=== PATIENT | male | born 1965 | race African-American/Black ===

== ENCOUNTER 2018-01-18 10:39 | Inpatient (IN) | payer OTHER ==
[~2018-01-18] VITALS: Ht 175.3 cm; Wt 104.3 kg
[2018-01-18] VITALS (7 sets, daily range): BP systolic 139–208; BP diastolic 74–108
--- NOTE | ~2018-01-18 | EKG ---
[address] [address] ELECTROCARDIOGRAM REPORT Name: DAMIÁN MERRILL Room #: 210-P ADM IN M.R.#: [id number] Admission: 01/18/18 Attend Phys: Kevin Villalta MD Discharge: Date of : 67 Report #: [id number] THIS REPORT FOR: //name// [facility] ED Test Date: 2018-01-18 Test Time: 11:01:21 Pat Name: DAMIÁN MERRILL Department: Room: 210 Gender: M Ict Development Manager: AVRIL : 1965 Requested By: Jef Segura Order Number: [id number] MD: Hector Carl Measurements Intervals [place] Rate: 86 P: 33 WI: 155 QRS: 67 QRSD: 88 T: 64 QT: 411 QTc: 492 Interpretive Statements Sinus rhythm Probable left atrial enlargement No previous ECG available for comparison Electronically Signed On 01-18-2018 17:17:30 CDT by Hector Carl [email or web address] <ELECTRONICALLY SIGNED> By: Hector Carl MD 01/18/18 1717 1101 1101 MD DEBBIE Cross
--- NOTE | ~2018-01-18 | HC ---
[facility] [place] [address] CONSULTATION Name: DAMIÁN MERRILL Room #: 210-P ADM IN M.R.#: [id number] Admission: 01/18/18 Attend Phys: Kevin Villalta MD Discharge: Date of : 67 Report #: [id number] THIS REPORT FOR: //name// CC: Kevin Villalta Pulmonary Consultation REFERRING PHYSICIAN: Kevin Villalta MD REASON FOR REFERRAL: Pneumonia. HISTORY OF PRESENT ILLNESS: The patient is a 52-year-old transgender female who presents to the emergency room with dyspnea. A pulmonary consultation was requested. The patient is a poor historian. Most of the history is obtained from the records. According to records, he has been symptomatic for the past week with progressive dyspnea, particularly at night. The patient had a prior history of respiratory failure requiring tracheostomy, which was removed. He is quadriplegic following a stroke with partial movement of his left arm and left foot. He currently resides at [facility]. Saturation there on the night of admission was said to be 82%. He was given the bronchodilator treatments. 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 ALLERGIES: None to medications. MEDICATIONS: [facility] include Tenormin, TriCor, hydralazine, Mevacor, Carafate, Norvasc, Aldactone, Mucinex, Phenergan, trazodone, Pyridium, Bactrim. FAMILY HISTORY: Noncontributory. SOCIAL HISTORY: Denies any tobacco or alcohol use. He currently resides at the [facility]. REVIEW OF SYSTEMS: Deferred, as the patient is not a good historian at this time. PHYSICAL EXAMINATION: GENERAL: He is awake, alert, in no distress. [facility] [address] [place] [address] CONSULTATION Name: DAMIÁN MERRILL Room #: [address] [place] [address] IN ..#: [id number] Admission: 01/18/18 Attend Phys: Kevin Villalta MD Discharge: Date of : 67 Report #: [id number] VITAL SIGNS: Temperature is 98 degrees Fahrenheit, pulse is 90, respiratory rate is 20, blood pressure 140/80 mmHg, and saturation is 99%. HEENT: Normocephalic, atraumatic. NECK: Supple, without lymphadenopathy or thyromegaly. CHEST: Breath sounds are fair anteriorly. Few scattered crackles in the bases. No wheezes. CARDIOVASCULAR: Normal S1, S2. No murmurs or gallop. There is no JVD. There is no carotid bruit. Pulses are 2+/4+ bilaterally. ABDOMEN: Soft, no masses felt. Nontender. GENITOURINARY AND RECTAL: Deferred. EXTREMITIES: There is no edema, cyanosis or clubbing. IMAGING DATA: CT chest angiogram shows no evidence of pulmonary embolus, left lower lobe infiltrate/atelectasis noted. Dense calcification involving the descending aorta is noted, enlargement of ascending aorta measuring 5 cm down to the diaphragm. LABORATORY DATA: Influenza A and B swab was negative. Troponin is normal. Venous ultrasound of the upper extremity was negative for DVT. Echocardiogram showed ejection fraction of 60%-65%, aortic valve not well visualized. Moderate aortic regurgitation, mitral valve is unremarkable. Pulmonary pressure measuring 75-80 mmHg. Aortic root measures upper limits of normal. Prominent descending aorta is noted. Electrolytes are normal, creatinine is normal. Liver enzymes are moderately elevated. WBC 7200, hemoglobin 11.6, hemoglobin 15.9. No evidence of bandemia. Platelets are normal. Albumin 3.3. Arterial blood gas revealed pH 7.34, pCO2 of 63, pO2 84 on 4 L of O2. IMPRESSION: 1. Left lower lobe infiltrates in this 52-year-old transgender female with history of HIV. This likely represents aspiration pneumonia. Nosocomial infection should also be covered. With history of HIV, opportunistic infection cannot be ruled out. Recommend infectious disease consultation. 2. Acute on chronic hypoxic hypercapnic respiratory failure due to above along with probable hypoventilation syndrome given history of cerebrovascular accident. 3. Cerebrovascular accident with incomplete quadriplegia, with some partial movements involving his left upper and lower extremities. 4. Human immunodeficiency virus. 5. Elevated D-dimer, likely due to infectious process. 6. History of hypertension. 7. Gastroesophageal reflux disease. 8. Hyponatremia. 9. Hypomagnesemia. RECOMMENDATIONS: We will defer antibiotics to infectious disease. Wean O2 for saturation 90%. Chest physiotherapy is recommended. DVT and GI prophylaxis [address] [address] CONSULTATION Name: DAMIÁN MERRILL Room #: 210-P [facility] IN M.R.#: [id number] Admission: 01/18/18 Attend Phys: Kevin Villalta MD Discharge: Date of : 67 Report #: [id number] will be indicated. Thank you for this consultation. <ELECTRONICALLY SIGNED> By: James Bradley MD 01/20/18 1715 1642 0051 James Bradley MD /nt
--- NOTE | ~2018-01-18 | 2DMMODE ---
[facility] [address] [place] [address] 2 D/M-MODE ECHOCARDIOGRAM Name: DAMIÁN MERRILL Room #: 210-P ADM IN M.R.#: [id number] Admission: 01/18/18 Attend Phys: Kevin Villalta MD Discharge: Date of : 67 Date of Service: 01/18/18 1531 Report #: [id number] THIS REPORT FOR: //name// APPROVED REPORT Study performed: 01/18/2018 13:42:05 EXAM: Comprehensive 2D, Doppler, and color-flow Echocardiogram Patient Location: Bedside Room #: 210 Status: routine BSA: 2.15 HR: 77 bpm BP: 178/74 mmHg Rhythm: NSR Other Information Study Quality: Fair Technically limited study due to breast implants. Indications Short of breath, HTN. Hx: HLP, HTN, HIV, CVA, quadraplegia. 2D Dimensions RVDd: 37.69 mm IVSd: 12.00 (7-11mm) LVOT Diam: 22.30 (18-24mm) LVDd: 40.00 mm PWd: 12.00 (7-11mm) LVDs: 27.00 (25-40mm) Aortic Root: 38.48 mm Volumes Left Atrial Volume (Systole) Single Plane 4CH: 46.81 mL Single Plane 2CH: 69.11 mL LA ESV Index: 28.00 mL/m2 Aortic Valve AoV Peak Real.: 1.92 m/s AO Peak Gr.: 15.85 mmHg LVOT Max P.93 mmHg LVOT Max V: 1.31 m/s SANTOS Vmax: 2.67 cm2 Mitral Valve E/A Ratio: 0.8 MV Decel. Time: 188.23 ms [facility] [address] [place] [address] 2 D/M-MODE ECHOCARDIOGRAM Name: DAMIÁN MERRILL STEVE Room #: [address] [place] [address] IN ..#: [id number] Admission: 01/18/18 Attend Phys: Kevin Villalta MD Discharge: Date of : 67 Date of Service: 01/18/18 1531 Report #: [id number] E Max Real.: 0.86 m/s MV A Real.: 1.11 m/s MV PHT: 54.59 ms IVRT: 114.19 ms Pulmonary Vein P Vein S: 0.53 m/s P Vein A: 0.32 m/s P Vein D: 0.35 m/s P Vein A Dur.: 96.9 msec P Vein S/D Ratio: 1.51 Tricuspid Valve TR Peak Real.: 4.12 m/s RAP Estimate: 10.00 mmHg TR Peak Gr.: 67.88 mmHg PA Pressure: 78.00 mmHg Left Ventricle The left ventricle is normal size. There is normal LV segmental wall motion. Mild concentric left ventricular hypertrophy. The left ventricular systolic function is normal. LVEF is 60-65%. Mild diastolic dysfunction is present (impaired relaxation pattern). Right Ventricle The right ventricle is normal size. The right ventricular systolic function is normal. Atria The left atrium size is normal. Right atrium is mildly dilated. Aortic Valve The aortic valve is not well visualized. Mildly sclerotic leaflets noted. Appears to be at least moderate aortic regurgitation. There is no aortic valvular stenosis. Mitral Valve The mitral valve is normal in structure. There is no mitral valve regurgitation noted. No evidence of mitral valve stenosis. Tricuspid Valve The tricuspid valve is normal in structure. Mild tricuspid regurgitation. Estimated PAP is 75-80mmHg. Pulmonic Valve Pulmonic valve is not well visualized. [facility] [address] [place] [address] 2 D/M-MODE ECHOCARDIOGRAM Name: DAMIÁN MERRILL Room #: 210-P [facility] IN .R.#: [id number] Admission: 01/18/18 Attend Phys: eKvin Villalta MD Discharge: Date of : 67 Date of Service: 01/18/18 1531 Report #: [id number] Great Vessels Aortic root meausres at the upper limits of normal. Ascending aorta is not well visualized. Prominent descending aorta noted. IVC is dilated and collapses >50% with inspiration. Pericardium Small of posterior pericardial fluid noted. <Conclusion> The left ventricle is normal size. LVEF is 60-65%. Right atrium is mildly dilated. The aortic valve is not well visualized. Mildly sclerotic leaflets noted. Appears to be at least moderate aortic regurgitation. The mitral valve is normal in structure. The tricuspid valve is normal in structure. Mild tricuspid regurgitation. Estimated PAP is 75-80mmHg. Pulmonic valve is not well visualized. Aortic root meausres at the upper limits of normal. Ascending aorta is not well visualized. Prominent descending aorta noted. Small of posterior pericardial fluid noted. <ELECTRONICALLY SIGNED> By: Vish Marti MD 01/18/18 1531 1531 153 Vish Marti MD /INF
--- NOTE | ~2018-01-18 | D ---
[facility] [place] [address] DISCHARGE SUMMARY Name: DAMIÁN MERRILL Room #: 210-P [facility] IN M.R.#: [id number] Admission: 01/18/18 Attend Phys: Kevin Villalta MD Discharge: 01/22/18 Date of : 67 Report #: [id number] THIS REPORT FOR: //name// CC: [facility] Kevin Villalta MD DATE OF SERVICE: 01/22/2018 SUMMARY OF HISTORY AND PHYSICAL: The patient has known HIV/AIDS and developed cold symptoms with a nonproductive cough over the week prior to admission. As the patient's symptoms progressed, she developed wheezing and was found to be hypoxic on room air and sent to the Emergency Room where the patient was found to have hazy, bilateral interstitial infiltrates and required 4 liters of oxygen. Admission was indicated. SUMMARY OF HOSPITAL COURSE: The patient was followed by the infectious disease service and antibiotics were ordered. The patient was followed by the pulmonary medicine service. Oxygen, breathing treatments and corticosteroids were part of the regimen. The oxygen needs steadily improved. The day of discharge the vrial panel reported positive for rhinovirus. A CTA of the chest was done because of an elevated D-dimer. It was negative for pulmonary emboli. It did reveal dense atelectasis/pneumonitis involving the left lower lobe. Motion artifact gave the impression that there was "double barrel" appearance of the ascending aorta, but a thrombosed previous dissection could not be ruled out from the images that were obtained. The heart was enlarged by CT criteria. The patient continued the intensive regimen for HIV, and on 01/22/2018, was doing well and requiring only 1 liter of nasal oxygen. At this time, the patient was strongly requested to be returned to [facility] where she lived. LABORATORY DATA: Creatinine was 0.7 and BUN was 16 on admission. Creatinine was 0.6 and 14 on discharge. Blood sugars rarely became high over 130. Magnesium was mildly low at 1.5, alkaline phosphatase mildly elevated at 126, SGPT elevated at 98, and SGOT elevated at 165. Lactic acid was negative at 1.6. Troponins were negative. NT-proBNP was normal at 178. D-dimer was elevated at 1.29. White blood cell count was 7.2 thousand, hemoglobin 15.9, MCV was 101.3. There was a lymphocytosis of 44.9% with 9.9 monocytes and only 44.1 segmented neutrophils. CD3 was high at 97.4, total CD3 was 1461, CD4 was low at 11.8, total CD4 was low at 177, CD8 was high at 86.5, total CD8 was high at 1298. Absolute lymphs were 1.5. MRSA by PCR of the nares was negative. [address] [address] DISCHARGE SUMMARY Name: DAMIÁN MERRILL Room #: 210-P DIS IN M.R.#: [id number] Admission: 01/18/18 Attend Phys: Kevin Villalta MD Discharge: 01/22/18 Date of : 67 Report #: [id number] A complete respiratory panel was positive only for rhinovirus. Urinalysis showed 2+ protein and 1+ blood with 1-9 bacteria. Legionella in the urine was negative. Sputum showed a few white blood cells with moderate Gram-positive cocci, few Gram-negative rods, a few Gram-negative coccobacilli, few Gram-negative diplococci and grew normal respiratory sunni on the culture. Influenza A and B antigens were negative. Blood cultures were negative. CTA of the chest is reviewed above. Portable chest x-ray on 01/18/2018 showed increasing lower lobe atelectasis and pneumonia in both lung bases with increased vascular congestion and pulmonary edema. Venous Doppler of both legs was negative. Blood pressure was 153/84 with respirations of 77 prior to discharge and was in this range through most of the hospital stay. Arterial blood gas on 4 liters by nasal cannula on 01/18/2018 showed a pH of 7.341 with pCO2 of 63.2 and a paO2 of 84.4 with a saturation measured of 94% on 4 liters. Arterial blood gas on the day of discharge on room air showed improvement with a pH of 7.432, the pCO2 off of oxygen had improved to 51.8, but the measured pO2 was 50.9. DISCHARGE DIAGNOSES: 1. Acute pneumonia and infiltrates of the left lower lobe due to a rhinovirus. 2. Acute on chronic respiratory failure. 3. Significant hypoventilation from the patient's stroke with improved but still elevated PCO2 of 50 at discharge. 4. Hypertension. Amlodipine was added while in the hospital, and will be continued back home. 5. Male gender change to female with breast implants and use of a condom catheter. 6. Incomplete quadriplegia from medullary infarct caused by atherosclerotic cardiovascular disease. 7. Cervical spinal stenosis. 8. Spasticity. 9. Squamous cell carcinoma of the skin of the scrotum. 10. Gastroesophageal reflux disease without esophagitis. 11. Human immunodeficiency virus. 12. Spasticity. Other medical problems as in the history and physical. DISCHARGE PLANS: Today, she can be transferred back to [facility] - follow chest x-ray until it clears. The patient will be continued on 2 liters of oxygen, to be tapered off as the lungs continue to improve. Antibiotics are [facility] [address] [place] [address] DISCHARGE SUMMARY Name: DAMIÁN MERRILL Room #: 210[facility] IN ..#: [id number] Admission: 01/18/18 Attend Phys: Kevin Villalta MD Discharge: 01/22/18 Date of : 67 Report #: [id number] azithromycin 500 mg a day for 10 days, amoxicillin/clavulanic acid 875/175 twice daily, sulfamethoxazole DS 1 tablet daily as pneumocystis prophylaxis and oseltamivir 75 mg twice daily for 5 more days for possible influenza virus (at the time of transfer, the rhinovirus positive result had not been reported), ipratropium/albuterol by nebulizer every 4 hours while awake, amlodipine 10 mg daily for hypertension, Pulmicort Respules 0.5 mg twice daily by nebulizer, prednisone 5 tablets 15 mg for 5 days and then decrease to 10 mg daily and check with Dr. Villalta about decreasing it further, aspirin 81 mg daily, baclofen 20 mg 3 times daily, calcium carbonate with vitamin D 1 daily, chlorthalidone 25 mg tablets 2 tablets daily, fluticasone nose spray once or twice daily, polyethylene glycol 3350 one capful at bedtime routinely, potassium chloride 20 mEq daily, loratadine 10 mg daily, nevirapine 200 mg once daily, omeprazole 20 mg daily, ramipril 10 mg twice daily, omeprazole 20 mg daily, nevirapine 200 mg twice daily, loratadine 10 mg daily, potassium chloride 20 mEq daily, furosemide 40 mg daily, vitamin E 400 units daily, ezetimibe 10 mg daily, abacavir-lamivudine 1 tablet at noon and at 12 midnight, gabapentin 300 mg at bedtime, cyclobenzaprine 5 mg 3 times a day as needed for muscle relaxer, sodium chloride nasal spray for use with the nebulizer and other medications, acetaminophen 500 mg every 8 hours as needed, milk of magnesia as needed, guaifenesin/dextromethorphan (Siltussin DM cough syrup 119 mL), metoprolol succinate 100 mg daily, triamcinolone gel. Amlodipne 10mg added for high blood pressure. CBC, CMP and chest x-ray on 01/24/2018. The patient is to be followed by Dr. Kevin Villalta at [facility]. <ELECTRONICALLY SIGNED> By: Brian Granger MD 01/23/182013 0038 0143 Brian Granger MD /nt
--- NOTE | ~2018-01-18 | HC ---
[facility] [place] [address] CONSULTATION Name: DAMIÁN MERRILL Room #: 210-P [facility] IN M.R.#: [id number] Admission: 01/18/18 Attend Phys: Kevin Villalta MD Discharge: Date of : 67 Report #: [id number] THIS REPORT FOR: //name// CC: Kevin Villalta DATE OF SERVICE: 01/19/2018 INFECTIOUS DISEASE CONSULTATION HISTORY OF PRESENT ILLNESS: The patient is a 52-year-old transgender HIV positive male with previous medullary infarct and incomplete quadriplegia who resides at [facility]. About a week ago, developed increased sinus congestion, cough. This has progressed. He dropped his O2 saturation yesterday and was admitted to the Emergency Room. X-ray showed basilar infiltrates. Cardiology evaluated the patient and did not find any evidence of congestive heart failure. He does have underlying hypertension. He has had nonproductive cough. No pleuritic chest pain. No hemoptysis. He gets dyspnea with much talking. He is essentially bedbound. No change in his antiretroviral program. He states that his viral load was undetectable. I do not have his most recent CD4 count available. He has had no travel. No tuberculosis exposure. Does have gastroesophageal reflux. REVIEW OF SYSTEMS: GENERAL: There has been no weight loss or significant weight gain recently. He has had no fever, chills or sweats. HEENT: No visual changes or auditory changes. He denies any mucositis. Does not note any lymphadenopathy. PULMONARY: As above. CARDIOVASCULAR: As above with no significant peripheral edema, PND, or orthopnea. GASTROINTESTINAL: Denies any nausea, vomiting or diarrhea. UROLOGIC: Uses a [place] catheter. ENDOCRINE: No history of diabetes or thyroid disease. He is a transgender male. No skin lesions or rash reported. No hematologic issues. HIV has been longstanding. PAST MEDICAL HISTORY: Hypertension, HIV, gastroesophageal reflux, squamous cell carcinoma of the scrotum, hyperlipidemia, cerebrovascular disease, previous stroke, cervical spinal stenosis. FAMILY HISTORY: Noncontributory. SOCIAL HISTORY: Nonsmoker. No significant alcohol use. Has been in a fpc for several years. ALLERGIES: None known. [facility] [address] [place] [address] CONSULTATION Name: DAMIÁN MERRILL Room #: 210-P [facility] IN M.R.#: [id number] Admission: 01/18/18 Attend Phys: Kevin Villalta MD Discharge: Date of : 67 Report #: [id number] MEDICATIONS: As noted on his MAR, which were reviewed. He is given vancomycin in the Emergency Room and one dose of Zosyn. In addition, he has been on Bactrim prophylaxis, nevirapine, Trizivir. PHYSICAL EXAMINATION: GENERAL: Well-nourished, in acute distress. He was talking on the phone when I went in to see him. He is on oxygen per nasal cannula. He did have several episodes of nonproductive cough during evaluation. HEENT: Eyes without scleral icterus or conjunctivitis. Mouth without lesion or mucositis. NECK: Supple. No thyromegaly or mass. No JVD. LUNGS: Coarse breath sounds heard posteriorly, mostly in the bases, left greater than right. No consolidation. No wheezing. HEART: Regular without murmur, gallop or rub. Peripheral pulses were palpable. ABDOMEN: Obese, soft and nontender. CHEST: The patient had breast tissue. EXTERNAL GENITALIA: Without lesion or rash. He had external catheter in place. EXTREMITIES: Generalized weakness throughout, left was stronger than the right. He had very limited strength in the right upper extremity. Unable to move his lower extremities. NEUROLOGIC: The patient was alert with normal affect. SKIN: Without lesion or rash. No palpable adenopathy. LABORATORY STUDIES: Blood cultures are negative to date. Sodium 130, potassium 4.2, bicarbonate 31, creatinine 0.7, AST 65, alkaline phosphatase 126, ALT 98. Lactate 1.6, hemoglobin 15.9. WBC 7.2, platelet count 214,000. Differential with 44% lymphs, 44% segs, 10% monocytes. MRSA screen pending. Vancomycin level pending. Urinalysis: Rare wbc's, few bacteria. ABGs on 4 liters of oxygen per nasal cannula had pO2 of 84, pCO2 of 63, pH 7.34. Blood and sputum cultures have been obtained. Influenza antigen was negative. Chest x-ray shows bilateral basilar infiltrates. Echocardiogram, moderate aortic regurgitation. EF was normal. IMPRESSION: 1. A 52-year-old with underlying human immunodeficiency virus infection. I do not know what his baseline CD4 count is. It is noted that he remains on Bactrim prophylaxis. 2. Presents with pneumonia, healthcare associated, possible opportunistic infection. 3. History of hypertension, stroke and incomplete quadriplegia. 4. Gastroesophageal reflux. 5. Transgender. RECOMMENDATIONS: We will continue with broad antibiotic coverage including vancomycin, Zosyn, azithromycin. We will repeat his chest x-ray. If any [facility] [address] [place] [address] CONSULTATION Name: DAMIÁN MERRILL Room #: 210-P ADM IN M.R.#: [id number] Admission: 01/18/18 Attend Phys: Kevin Villalta MD Discharge: Date of : 67 Report #: [id number] further progression, will need bronchoscopy for immunocompromised host. He will stay on his Bactrim prophylaxis. He will stay on his antiretroviral program. We will obtain CD4 count. We will obtain urine antigens, viral respiratory panel, histoplasma serology. <ELECTRONICALLY SIGNED> By: Jef Shell MD 01/20/18 1053 0931 [id number] Jef Shell MD /nt
[~2018-01-18 10:39] MED LIST: ABACAVIR LAMIVUDINE; ALDACTONE25 MG; ALTACE10 MG PO; APAP500 PO; ASPIR 8181 MG PO; ATENOLOL 100MG100 MG PO; CALCIUM 500 +1 EAC5 PO; CARAFATE 1 GM TA1 G1 PO; CENTRUM SILVER1 EAC2 PO; CHLORTHALIDONE25 MG PO; CLARITIN10 MG PO; CYCLOBENZAPRINE5 MG; DEEP SEA NASAL44 M1; ENOXAPARIN40 MG/0.1 SUBQ; FLONASE 0.05%50 MCG NASAL; GLYCOLAX255 GM PO; HYDRALAZINE 2525 MG PO; LASIX 40 MG TAB40 M2 PO; LIORESAL 10 MG10 MG PO; LOVASTATIN 20 M20 MG PO; MILK OF MA2400 MG/10; MINTOX SUSPENS355 ML PO; MUCINEX TA600 MG/TA2 PO; NEURONTIN 300300 M1; NEVIRAPINE200 MG PO; NORVASC2.5 MG; PHENAZOPYRIDIN200 M2; PHENERGAN 25 MG25 M1 PO; POTASSIUM20 PO; PRILOSEC20 MG PO; QUINIDINE GLUC324 MG PO; SILTUSSIN DM C118 ML; THEREMS-M1 EACH; TRAZODONE HCL100 MG; TRICOR145 MG PO; VITAMIN E400 UNIT PO; ZETIA10 MG PO; [UNRECOGNIZED DRUG - OTHER]
[2018-01-18] MEDS ORDERED: KAPSPARGO SPRI100 MG PO (10:59)
[2018-01-18] MEDS ORDERED: DEBROX (11:02)
[2018-01-18 11:04] LABS: ABSOLUTE NEUTROPHILS 3.2 thou/uL (1.4-8.2); BASOPHILS 0.6 % (0.0-2.0); EOSINOPHILS 0.5 % (0.0-3.0); HEMATOCRIT 46.8 % (42.0-52.0); HEMOGLOBIN 15.9 gm/dL (14.0-18.0); LYMPHOCYTES 44.9 % (24.0-44.0); MCH 34.4 pg (26.0-34.0); MCHC 33.9 g/dL (28.0-37.0); MCV 101.3 fL (80.0-100.0); MONOCYTES 9.9 % (1.0-8.0); PLATELET COUNT 214 thou/uL (150-400); POLYS 44.1 % (36.0-66.0); RBC 4.62 mil/uL (4.50-6.00); RDW 14.2 % (10.5-14.5); WBC 7.2 thou/uL (4.0-11.0)
[2018-01-18] MEDS ORDERED: BACTRIM DS TAB1 EACH PO (11:08)
[2018-01-18 11:10] LABS: ANION GAP 5 mmol/L (7-16); BUN 16 mg/dL (7-18); CALCIUM 9.9 mg/dL (8.5-10.1); CHLORIDE 94 mmol/L (98-107); CO2 31 mmol/L (21-32); CREATININE 0.7 mg/dL (0.7-1.3); GLUCOSE 104 mg/dL (74-106); POTASSIUM 4.2 mmol/L (3.5-5.1); SODIUM 130 mmol/L (136-145)
[2018-01-18] MEDS ORDERED: TRIAMCINOLONE A80 G2 TOP (11:10)
[2018-01-18 11:16] LABS: APTT 28.9 Seconds (24.5-32.8); PROTIME 10.4 Seconds (9.3-11.4)
[2018-01-18 11:17] LABS: BE(vivo) 5.3 mmol/L (-2 to +3); HCO3 33.4 mmol/L (22.0-26.0); PCO2 63.2 mmHg (35.0-45.0); PO2 84.8 mmHg (80.0-100.0); pH 7.341 (7.360-7.450); sO2 95.6 % (92.0-98.0)
[2018-01-18 11:20] LABS: ALBUMIN 3.3 g/dL (3.4-5.0); MAGNESIUM 1.5 mg/dL (1.8-2.4); SGOT 65 U/L (15-37); SGPT 98 U/L (30-65); TOTAL BILIRUBIN 0.4 mg/dL (<0.1-1.0); TROPONIN-I <0.06 ng/mL (<0.06)
[2018-01-18 11:30] LABS: D-DIMER 1.29 ug/mLFEU (0.19-0.50)
[2018-01-18 11:58] LABS: URINE BILIRUBIN NEGATIVE (Negative); URINE BLOOD 1+ (Negative); URINE CLARITY CLEAR; URINE COLOR YELLOW; URINE GLUCOSE-RANDOM* NEGATIVE (Negative); URINE KETONES NEGATIVE (Negative); URINE LEUKOCYTES-REFLEX NEGATIVE (Negative); URINE NITRITE-REFLEX NEGATIVE (Negative); URINE PROTEIN (DIPSTICK) 2+ (Negative); URINE UROBILINOGEN 0.2 E.U./dl (0.2-1.0)
[2018-01-18 13:04] LABS: SQUAMOUS 0-3 Few /LPF (0-3)
[2018-01-18 13:06] LABS: CASTS None Seen /LPF (None Seen); URINE WBC-REFLEX 0-5 Rare /HPF (0-5)
[2018-01-18 13:07] LABS: AMORPHOUS PHOSPHATES Few /LPF (None Seen); BACTERIA-REFLEX 1-9 Few /HPF (None Seen); URINE RBC 3-10 Few /HPF (0-2)
[2018-01-19 04:03] VITALS: BP 148/80
[2018-01-19 07:44] VITALS: BP 134/78
[2018-01-19 12:26] VITALS: BP 137/85
[2018-01-19 16:48] VITALS: BP 143/78
[2018-01-19 19:43] VITALS: BP 157/82
[2018-01-20 04:13] VITALS: BP 137/83
[2018-01-20 08:13] VITALS: BP 132/65
[2018-01-20 09:29] VITALS: BP 149/85
[2018-01-20 11:24] VITALS: BP 146/88
[2018-01-20 15:11] LABS: CD3 % 97.4 % (57.5-86.2); CD4 % 11.8 % (30.8-58.5); CD4:CD8 0.14 (0.92-3.72); CD8 % 86.5 % (12.0-35.5)
[2018-01-20 20:00] VITALS: BP 155/84
[2018-01-21 04:27] LABS: HEMATOCRIT 45.8 % (42.0-52.0); MCH 33.5 pg (26.0-34.0); MCHC 32.8 g/dL (28.0-37.0); MCV 102.2 fL (80.0-100.0); RBC 4.48 mil/uL (4.50-6.00); RDW 14.2 % (10.5-14.5); WBC 7.4 thou/uL (4.0-11.0)
[2018-01-21 04:45] LABS: CREATININE 0.6 mg/dL (0.7-1.3); POTASSIUM 4.1 mmol/L (3.5-5.1)
[2018-01-21 04:51] VITALS: BP 143/84
[2018-01-21 08:15] VITALS: BP 180/80
[2018-01-21 11:50] VITALS: BP 153/85
[2018-01-21 19:07] LABS: HISTOPLASMA MYCELIAL-ID Negative (Negative)
[2018-01-21 19:40] VITALS: BP 149/84
[2018-01-21 21:10] LABS: HISTOPLASMA MYCELIAL-CF Negative (Neg:<1:2)
[2018-01-22 04:37] VITALS: BP 160/92
[2018-01-22 07:35] VITALS: BP 154/83
[2018-01-22 11:34] VITALS: BP 153/84
[2018-01-22 12:14] LABS: BE(vivo) 7.6 mmol/L (-2 to +3); HCO3 33.8 mmol/L (22.0-26.0); PCO2 51.8 mmHg (35.0-45.0); pH 7.432 (7.360-7.450); sO2 86.6 % (92.0-98.0)
[2018-01-22 12:15] LABS: PO2 50.9 mmHg (80.0-100.0)
[2018-01-22] MEDS ORDERED: BACTRIM DS TAB1 EACH PO (12:34)
[2018-01-22] MEDS ORDERED: AMLODIPINE BESY10 MG PO (12:34)
[2018-01-22] MEDS ORDERED: AZITHROMYCIN 2250 MG PO (12:34)
[2018-01-22] MEDS ORDERED: IPRAT-ALBUT 0.5-3 ML INH (12:34)
[2018-01-22] MEDS ORDERED: OSELB75 PO (12:34)
[2018-01-22] MEDS ORDERED: AUGMENTIN 875-1 EACH PO (12:34)
[2018-01-22] MEDS ORDERED: PREDNISONE 5 MG5 M1 PO (12:43)
[2018-01-22] MEDS ORDERED: PULMICORT0.5 MG/21 INH (12:43)
[2018-01-22 23:09] LABS: ADENOVIRUS Negative (Negative); INFLUENZA A Negative (Negative); INFLUENZA B Negative (Negative); METAPNEUMOVIRUS Negative (Negative); PARAINFLUENZA 1 Negative (Negative); PARAINFLUENZA 2 Negative (Negative); PARAINFLUENZA 3 Negative (Negative); RHINOVIRUS Positive (Negative); RSV A Negative (Negative); RSV B Negative (Negative)
== END 2018-01-22 14:50 | DRG 977 ==
LOC: ER 10:39 → 2N 11:50 → EROBS 11:50 → 2N 12:34
PROVIDERS: Emergency Medicine; Internal Medicine; Specialist
DX: B20 Human immunodeficiency virus [HIV] disease (principal); J69.0 Pneumonitis due to inhalation of food and vomit; G82.52 Quadriplegia, C1-C4 incomplete; J96.21 Acute and chronic respiratory failure with hypoxia; E87.1 Hypo-osmolality and hyponatremia; K21.9 Gastro-esophageal reflux disease without esophagitis; E78.5 Hyperlipidemia, unspecified; I50.9 Heart failure, unspecified; E83.42 Hypomagnesemia; I73.9 Peripheral vascular disease, unspecified; M48.02 Spinal stenosis, cervical region; I25.10 Atherosclerotic heart disease of native coronary artery without angina pectoris; I11.0 Hypertensive heart disease with heart failure; I71.9 Aortic aneurysm of unspecified site, without rupture; I71.2 Thoracic aortic aneurysm, without rupture; Z86.73 Personal history of transient ischemic attack (TIA), and cerebral infarction without residual deficits; Z79.82 Long term (current) use of aspirin; Z79.899 Other long term (current) drug therapy
CPT/HCPCS: 10797

== ENCOUNTER 2019-03-04 08:38 | Inpatient (IN) | payer OTHER ==
[2019-03-04] VITALS (7 sets, daily range): BP systolic 127–154; BP diastolic 70–84
[~2019-03-04] VITALS: Ht 175.3 cm; Wt 93.1 kg
--- NOTE | ~2019-03-04 | EKG ---
[place] [address] [address] [facility] [place] [address] ELECTROCARDIOGRAM REPORT Name: ANNA MERRILLSTOUTI Room #: [facility] M.R.#: [id number] Admission: Attend Phys: Discharge: Date of : 67 Report #: [id number] THIS REPORT FOR: //name// 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
--- NOTE | ~2019-03-04 | HC ---
[facility] [address] CONSULTATION Name: DAMIÁN MERRILL Room #: 355-P ADM IN M.R.#: [id number] Admission: 03/04/19 Attend Phys: Kevin Villalta MD Discharge: Date of : 67 Report #: [id number] THIS REPORT FOR: //name// CC: Kevin Villalta DATE OF SERVICE: 03/05/2019 INFECTIOUS DISEASE CONSULTATION ATTENDING PHYSICIAN: Dr. Villalta. REQUESTING PHYSICIAN: Dr. Fritz. REASON FOR CONSULTATION: Pulmonary infiltrates, chronic HIV/AIDS infection. HISTORY OF PRESENT ILLNESS: A 53-year-old man, transsexual to female sex, diagnosed to have HIV infection many years ago, under the care of Dr. Vane Downing at [facility], on combination antiretroviral medication including Abacavir, Nevirapine, lamivudine and zidovudine (rather old fashioned medications). He is admitted with history of not feeling well and he tells me he is having fevers and headaches for 3 days. He was found as well to have bilateral pulmonary infiltrates. Unfortunately, I cannot compare CT scans because the machine does not allow me to see the pulmonary windows, but chest x-ray looks exactly the same at the year January 2018 and February 2019. DRUG ALLERGIES: None listed. MEDICATIONS: The patient is on treatment for his HIV infection with a combination of lamivudine, zidovudine, Abacavir 300 mg b.i.d. and nevirapine 200 mg b.i.d. Here at the hospital for the pulmonary infiltrates, he has been placed on Zosyn 3.375 grams IV every 8 hours, Zyvox 600 mg p.o. b.i.d. and Levaquin 750 mg daily. The patient is also on treatment with acetamide, spironolactone, hydrochlorothiazide, famotidine, amlodipine, vitamin E, furosemide, lisinopril, KCl, fluconazole propionate, calcium carbonate, aspirin, baclofen, trazodone, tamsulosin, triamcinolone acetate topical, gabapentin, polyethylene glycol, budesonide, Atrovent and albuterol inhalation treatments, p.r.n., acetaminophen, magnesium hydroxide. PAST MEDICAL HISTORY: HIV/AIDS for a number of years with last CD4 lymphocyte count at [facility] of 177 per cubic cm. Previous MRSA screen negative. HIV by PCR is pending. On January 2018, histoplasma antigen was obtained and that was negative. We do not have viral load or HIV genotype. The patient apparently also is known to have gastroesophageal reflux, spinal stenosis with incomplete paraplegia. He tells me he is not paralyzed, but it turns out he cannot walk and much less move his legs, which qualifies as paraplegia at least and when I tried to shake hands, he cannot even move the [facility] [address] [place] [address] CONSULTATION Name: DAMIÁN MERRILL Room #: 355-P ADM IN M.R.#: [id number] Admission: 03/04/19 Attend Phys: Kevin Villalta MD Discharge: Date of : 67 Report #: [id number] arm, which qualifies possibly as quadriparesis or quadriplegia. He also has squamous cell carcinoma of the scrotum. SOCIAL HISTORY: See H and P or records. FAMILY HISTORY: See H and P or records. REVIEW OF SYSTEMS: As above. PHYSICAL EXAMINATION: GENERAL: Chronically ill-appearing man to female with evidence of silicone injection to breasts. HEENMT: Pupils reactive. Mouth: No thrush or hairy leukoplakia. NECK: Supple. LUNGS: Few rhonchi. HEART: S1, S2. No gallop or murmur. ABDOMEN: Soft. No masses or megaly. GENETALIA AND RECTAL: Deferred. EXTREMITIES: Reveal atrophy of muscle groups. NEUROLOGIC: Reveals quadriparesis. LABORATORY DATA: Sodium 136, potassium 4.3, BUN 17, creatinine 0.7, SGPT 70, albumin 3. WBC 7.9, hemoglobin 12.4, MCV elevated at 101.3. CD4 lymphocyte count pending. HIV by PCR pending. Urinalysis revealed 1+ blood, positive nitrite and many amorphous. O2 saturation 95% on 6-4 liters oxygen nasal cannula. Obviously, we need a chest x-ray. Cultures negative. RADIOLOGY EVALUATION: A CT scan of the chest PE protocol failed to reveal pulmonary embolism. The patient's motion artifacts in pairs on evaluation of the distal arteries, extensive bilateral patchy mix infiltrate consistent with multifocal pneumonitis. In the breast, there is extensive calcification bilaterally. Obviously, with previous 20-year history of silicone injection, these could be the explanation of those findings. Chest x-ray revealed cardiomegaly, bilateral pulmonary infiltrates, some congestive heart failure. SUGGESTIONS: Obviously, we need CD4 lymphocyte count, viral load, prophylaxis with Bactrim-DS 1 daily. Triple antibiotic coverage in order. Since the patient relates a history of fevers and headaches, cryptococcal antigen series indicated. If this is negative or positive, he would earn himself a spinal tap, particularly if CD4 count below 200. Hopefully, Dr. Shell could examine CT scan pulmonary windows and make a determination if findings compatible with pneumocystis. I will order also a Fungitell test. [address] [place] [address] CONSULTATION Name: DAMIÁN MERRILL Room #: 355-P ADM IN M.R.#: [id number] Admission: 03/04/19 Attend Phys: Kevin Villalta MD Discharge: Date of : 67 Report #: [id number] Fritz, thank you for requesting my suggestions in the care of your patient. By: [id number] [id number] Edd Carl MD /regis
[~2019-03-04 08:38] MED LIST changes: -ABACAVIR LAMIVUDINE; +AMLODIPINE BESY10 MG PO; -APAP500 PO; -ASPIR 8181 MG PO; +ASPIRIN EC81 M1 PO; +AUGMENTIN 875-1 EACH PO; +AZITHROMYCIN 2250 MG PO; +BACTRIM DS TAB1 EACH PO; +DEBROX; -GLYCOLAX255 GM PO; +IPRAT-ALBUT 0.5-3 ML INH; +KAPSPARGO SPRI100 MG PO; +MIRALAX17 GM PO; -NEURONTIN 300300 M1; +NEURONTIN 300300 M1 PO; +OSELB75 PO; +PREDNISONE 5 MG5 M1 PO; +PULMICORT0.5 MG/21 INH; +TRIAMCINOLONE A80 G2 TOP; +TRIZIVIR PO; +TYLENOL EXTRA500 MG PO; -[UNRECOGNIZED DRUG - OTHER]
[2019-03-04 09:12] LABS: HEMATOCRIT 41.2 % (42.0-52.0); HEMOGLOBIN 13.6 gm/dL (14.0-18.0); MCH 33.1 pg (26.0-34.0); MCHC 33.1 g/dL (28.0-37.0); PLATELET COUNT 250 thou/uL (150-400); RBC 4.12 mil/uL (4.50-6.00); RDW 14.7 % (10.5-14.5)
[2019-03-04 09:15] LABS: URINE BILIRUBIN NEGATIVE (Negative); URINE BLOOD 1+ (Negative); URINE CLARITY CLEAR; URINE COLOR YELLOW; URINE GLUCOSE-RANDOM* NEGATIVE (Negative); URINE KETONES NEGATIVE (Negative); URINE LEUKOCYTES-REFLEX NEGATIVE (Negative); URINE PROTEIN (DIPSTICK) NEGATIVE (Negative); URINE UROBILINOGEN 0.2 E.U./dl (0.2-1.0)
[2019-03-04 09:24] LABS: ANION GAP 9 mmol/L (7-16); BUN 22 mg/dL (7-18); CALCIUM 10.6 mg/dL (8.5-10.1); CHLORIDE 100 mmol/L (98-107); CO2 29 mmol/L (21-32); CREATININE 0.8 mg/dL (0.7-1.3); GLUCOSE 89 mg/dL (74-106); POTASSIUM 4.5 mmol/L (3.5-5.1); SODIUM 138 mmol/L (136-145)
[2019-03-04 09:34] LABS: DIRECT BILIRUBIN 0.2 mg/dL (<0.1-0.3); SGOT 49 U/L (15-37); SGPT 70 U/L (30-65); TOTAL BILIRUBIN 0.5 mg/dL (<0.1-1.0); TOTAL PROTEIN 7.3 g/dL (6.4-8.2); TROPONIN-I <0.06 ng/mL (<0.06)
[2019-03-04 09:38] LABS: SSA (PROTEIN CONFIRMATORY) TRACE (APPROX. 5) mg/dL (Negative); URINE NITRITE-REFLEX POSITIVE (Negative)
[2019-03-04] MEDS ORDERED: FAMOTIDINE 20 M20 MG PO (09:39)
[2019-03-04] MEDS ORDERED: SPIRONOLACTONE25 MG PO (09:41)
[2019-03-04] MEDS ORDERED: HYDROCHLOROTHIA25 M2 PO (09:41)
[2019-03-04 09:42] LABS: BACTERIA-REFLEX >30 Many /HPF (None Seen); CASTS None Seen /LPF (None Seen); SQUAMOUS None Seen /LPF (0-3); TRIPLE PHOSPHATE CRYSTALS >10 Many /LPF (None Seen); URINE RBC 0-2 Rare /HPF (0-2); URINE WBC-REFLEX None Seen /HPF (0-5)
[2019-03-04] MEDS ORDERED: FLOMAX0.4 MG PO (09:44)
[2019-03-04] MEDS ORDERED: METOPROLOL TART25 MG PO (09:50)
[2019-03-04] MEDS ORDERED: TRAZODONE HCL50 MG PO (09:53)
[2019-03-04] MEDS ORDERED: FOSAMAX 70 MG T70 MG PO (09:54)
--- NOTE | 2019-03-04 10:11 | EKG ---
[address] [place] [address] ELECTROCARDIOGRAM REPORT Name: DAMIÁN MERRILL [id number] Admission: 03/04/19 Attend Phys: Discharge: Date of : 67 Report #: [id number] THIS REPORT FOR: //name// [facility] ED Test Date: 2019-03-04 Test Time: 08:41:39 Pat Name: DAMIÁN MERRILL Department: Room: Gender: Certified Personal Finance Counselor: DI : 1965 Requested By: Chey Gonzalez Order Number: [id number] MD: Jd Mckay Measurements Intervals [place] Rate: 109 P: 47 MD: 188 QRS: 78 QRSD: 77 T: 61 QT: 347 QTc: 468 Interpretive Statements Sinus tachycardia Anteroseptal infarct, old Baseline wander in lead(s) V2 Compared to ECG 01/18/2018 11:01:21 septal Q waves are now present Electronically Signed On 03-04-2019 10:10:49 SENIOR JAVA WEB APPLICATION DEVELOPER by Jd Mckay [email or web address] <ELECTRONICALLY SIGNED> By: Jd Mckay MD, [facility] 03/04/19 1010 0 0 Jd Mckay MD, FAC /EPI
[2019-03-04 10:19] LABS: ABSOLUTE NEUTROPHILS 4.3 thou/uL (1.4-8.2); ATYPICAL LYMPHS 7 %
[2019-03-04 10:20] LABS: LARGE PLATELETS OCCASIONAL
--- NOTE | 2019-03-04 10:33 | NUR ---
YOSI ARREGUIN RN FROM FACILITY CALLED TO CHECK THE STATUS OF PT.
--- NOTE | 2019-03-04 18:23 | NUR ---
pt admitted from ER for pneumonia, pt is A&OX3, PT is continung o2 5L/min/nc, pt's vs and o2sat are stable at this time, PT has started IV abx at ER, pt needs help ADL and change position, pt dneies SOB and N/V .
[2019-03-04] MEDS ORDERED: BIOTENE1000 ML SWISH&SPIT (18:51)
[2019-03-04] MEDS ORDERED: ARTIFICIAL TEAR1510 OPHTHALMIC (18:55)
[2019-03-04] MEDS ORDERED: SYMBICORT160 MCG/4. INH (18:59)
[2019-03-04] MEDS ORDERED: SILTUSSIN DM C118 ML PO (19:02)
[2019-03-05] VITALS: BP 130/67
[2019-03-05 03:05] VITALS: BP 120/66
[2019-03-05 05:28] LABS: HEMATOCRIT 38.3 % (42.0-52.0); HEMOGLOBIN 12.4 gm/dL (14.0-18.0); MCH 32.9 pg (26.0-34.0); MCHC 32.5 g/dL (28.0-37.0); MCV 101.3 fL (80.0-100.0); RBC 3.78 mil/uL (4.50-6.00); RDW 14.6 % (10.5-14.5); WBC 7.9 thou/uL (4.0-11.0)
[2019-03-05 05:40] LABS: CALCIUM 9.4 mg/dL (8.5-10.1); CREATININE 0.7 mg/dL (0.7-1.3); POTASSIUM 4.3 mmol/L (3.5-5.1)
[2019-03-05 07:40] VITALS: BP 122/62
[2019-03-05 08:18] LABS: BE(vivo) -0.4 mmol/L (-2 to +3); HCO3 25.3 mmol/L (22.0-26.0); PCO2 45.5 mmHg (35.0-45.0); PO2 62.4 mmHg (80.0-100.0); pH 7.363 (7.360-7.450)
[2019-03-05 15:22] VITALS: BP 103/55
--- NOTE | 2019-03-05 17:30 | NUR ---
Spoke with pharmacist today regarding home medications. Hospital does not have one of pt's medications (Nevirapine) and was unable to get from other hospitals. Case management consult placed to see if obtaining medication from nursing facility could be facilitated. Headache was relieved with Tylenol. O2 at 4 liters- no apparent pulmonary distress. Placed in contact isolation for MRSA positive in nares.
[2019-03-05 20:17] VITALS: BP 125/62
[2019-03-06 05:36] VITALS: BP 110/65
--- NOTE | 2019-03-06 05:45 | NUR ---
ASSUMED CARE OF PATIENT AT 1900. VSS, AFEBRILE. RESTING THROUGH THE NIGHT. CALLS OUT FOR NEEDS. C/O CHRONIC BACK PAIN. TYLENOL GIVEN WITH SOME RELIEF. REFUSES MOST TURNS, HAS OWN SCHEDULE. REFUSES SOME MEDICATIONS. NO S/S OF DISTRESS. WILL CONTINUE TO MONITOR.
[2019-03-06 07:06] LABS: CD3 % 95.2 % (57.5-86.2); CD4 % 11.8 % (30.8-58.5); CD4:CD8 0.14 (0.92-3.72); CD8 % 84.2 % (12.0-35.5)
[2019-03-06 08:06] VITALS: BP 124/68
--- NOTE | 2019-03-06 10:42 | NUR ---
INITIAL ASSESSMENT: Received consult to contact pt's nursing facility to obtain one of pt's HIV medications--Nevirapine. Per chart, [facility] does not have it available. CHARLOTTE reviewed chart and spoke with nursing and attending physician. Pt was admitted from [facility] due to pnuemonia/hypoxia. Pt with hx of HIV. Pt also with hx of cervical spinal stenosis and stroke with incomplete quadriplegia. Pt is currently in isolation and is on IV abx. Pt is on 5L of O2. Pt is transgender male to female. CHARLOTTE spoke with staff at [facility] this morning to discuss obtaining pt's home medication from the facility. Staff to check on availability of medication and will notify CHARLOTTE. CHARLOTTE updated pt's nurse. CHARLOTTE is following to assist as needed with discharge planning.
--- NOTE | 2019-03-06 11:18 | H ---
[facility] [address] [place] [place] [address] HISTORY AND PHYSICAL Name: DAMIÁN MERRILL Room #: 355-P ADM IN M.R.#: [id number] Admission: 03/04/19 Attend Phys: Kevin Villalta MD Discharge: Date of : 67 Report #: [id number] THIS REPORT FOR: //name// CC: Edd Carl MD [facility] Kevin Villalta MD DATE OF SERVICE: 03/04/2019 CHIEF COMPLAINT: Shortness of breath. HISTORY OF PRESENT ILLNESS: The patient is a 53-year-old -[place] Islander transgender (male to female) who was brought to the Emergency Room via ambulance from the [facility] where she resides. She was recently hospitalized in January with pneumonia and treated aggressively for that. Although she denies having symptoms before today, she does admit that she has been using cough syrup recently and felt much better it until this morning. PAST MEDICAL HISTORY: Includes HIV for a long time, squamous cell carcinoma of the scrotum, gastroesophageal reflux disease, cervical spinal stenosis spasticity, and history of stroke involving the medulla, infarction and incomplete quadriplegia. MEDICATIONS: Includes DuoNeb, amlodipine, budesonide, aspirin, baclofen, calcium carbonate with vitamin D3, chlorthalidone and furosemide, ramipril, potassium chloride, fluticasone nasal spray, MiraLax, nevirapine and abicavir/lamivudine combination drug, gabapentin, [place] nasal spray, Tylenol, milk of magnesia p.r.n., Robitussin-DM p.r.n., triamcinolone acetonide 0.1% cream, famotidine, spironolactone, tamsulosin, metoprolol, trazodone, alendronate, and the patient was also on antibiotics at the recent discharge including azithromycin, Augmentin, trimethoprim/sulfamethoxazole one tablet by mouth daily for PCP prophylaxis, Tamiflu and prednisone. ALLERGIES: The patient has no known drug allergies. SOCIAL HISTORY: The patient is a detention resident who had a stroke in nearly 20 years ago. The patient denies any recreational drugs or smoking. REVIEW OF SYSTEMS: The patient admits to headache and dry mouth and nasal congestion. Denies chest pain, but does have shortness of breath at rest. The patient admits to feeling constipated and bloated and no other new symptoms despite an extensive review. PHYSICAL EXAMINATION: VITAL SIGNS: In the Emergency Room show pulse of 111, respirations of 14 per [facility] [address] [place] [address] HISTORY AND PHYSICAL Name: DAMIÁN MERRILL Room #: 355-P [facility].#: [id number] Admission: 03/04/19 Attend Phys: Kevin Villalta MD Discharge: Date of : 67 Report #: [id number] minute, oxygen saturation of 88% on 6 liters per nasal cannula per minute with a blood pressure of 154/84, temperature of 37.4 degrees centigrade. Reported weight was 218 pounds. GENERAL: The patient is a large -[place] Islander person, in no immediate distress at the time of my exam on the afternoon of admission. HEENT: Extraocular muscles are intact. The voice is somewhat slurred, which is I believe baseline for this patient. Oropharynx is dry and pink. NECK: Without adenopathy or thyromegaly or mass or bruit. LUNGS: Fairly clear bilaterally. CARDIOVASCULAR: Reveals a regular tachycardia. ABDOMEN: Soft, slightly distended and few bowel sounds, without visceromegaly or masses. EXTREMITIES: There are dense motor losses on the right and slightly less so on the left side. The patient is able to grab my hand with his left hand. MENTAL STATUS: The patient is alert and oriented to person, place and time. The patient is able to speak more clearly when asked to speak slowly and enunciate. LABORATORY DATA: Workup in the Emergency Room included electrocardiogram, which showed sinus tachycardia with rate of 109 beats per minute and unchanged from the previous 01/2018 electrocardiogram. The chemistry showed a sodium of 138, potassium 4.5, chloride 100, bicarbonate of 29, BUN of 22, creatinine 0.8, anion gap was 9. Estimated GFR is 123. The glucose was 89. Calcium was slightly elevated at 10.6, total bilirubin of 0.5 and normal. AST of 49 slightly elevated, ALT of 70 slightly elevated and the alkaline phosphatase of 137 also slightly elevated. The total protein was 7.3 but the albumin was 3.0, which means that the measured calcium is actually an underestimate of the true hypercalcemia. The normal upper limits for calcium is 10.1 and normal lower limits of albumin is 3.4. D-dimer was slightly elevated at 1.19. The hematology showed white blood cell count of 10,000, hemoglobin of 13.6, hematocrit of 41.2, platelet count of 250,000. Red cell indices show a borderline macrocytosis with an MCV of 100 and an RDW at 14.7 just above the upper limits of normal. The differential showed 43% segmented neutrophils, no bands, 32% lymphocytes, 7% atypical lymphocytes, 16% monocytes elevated, eosinophils 2%, basophils 0, the absolute neutrophil count was 4300. Blood and urine cultures were obtained and are pending. The lactic acid level was 0.7 with an NT-proBNP of 88, both within normal limits. Urinalysis showed the patient had voided clear yellow urine with specific gravity of 1.010, slightly dilute and a pH of 8.5. The protein and ketones and bilirubin and leukocyte esterase were all negative on the dipstick. The protein was trace. The blood was 1+ and nitrite positive. Under microscopic exam, no red blood cells or white blood cells were seen in the urine, many triple phosphate crystals were seen. Greater than 30 urinary bacteria were seen per high power field despite the absence of epithelial cells and there were no casts [facility] [address] [place] [address] HISTORY AND PHYSICAL Name: DAMIÁN MERRILL Room #: [address] [place] [address] [place] .R.#: [id number] Admission: 03/04/19 Attend Phys: Kevin Villalta MD Discharge: Date of : 67 Report #: [id number] or glucose in the urine Chest x-ray showed cardiomegaly with bilateral pulmonary opacities/infiltrates and vascular congestion with small left pleural effusion. CTA of the chest showed absence of evidence to suggest pulmonary embolism. Significant motion artifact limited the usefulness of the study. Mention is made of "stable ectasia and dilatation of the thoracic aorta with calcified and noncalcified plaque similar to prior exam" and finally extensive bilateral patchy mixed infiltrates consistent with multifocal pneumonitis/pneumonia. No evidence of pneumothorax or significant pleural effusion. ASSESSMENT AND PLAN: 1. Multifocal pneumonia in a significantly immunocompromised patient. I have requested a consult with Infectious Diseases specialist and I discussed the case briefly by telephone with Dr. Edd Carl today. Aggressive management has been started and further assessment of his level of control of HIV is being evaluated as well as nasal swab for MRSA. Curiously, it does not appear that the patient was getting a Bactrim tablet daily for PCP prophylaxis. Given the aggressivity of the antimicrobial therapy is ordered at the time of admission, I did not reinstitute sulfa at this time, pending further conversation with Dr. Carl. I did start the patient on Zyvox as well as continue the Levaquin and Zosyn from the Emergency Room. 2. Urinary tract colonization versus infection, culture pending. 3. History of descending aortic aneurysm with thrombus mentioned for completeness. 4. Quadriplegia following stroke. 5. Human immunodeficiency virus, chronic. Continue current regimen while awaiting CD4 count. 6. Past history of cervical spinal stenosis, spasticity, hyperlipidemia, and hypertension -- we will continue all the patient's home medications and adjust them as needed according to the patient's needs. <ELECTRONICALLY SIGNED> By: Juaquin Fritz MD 03/06/19 1118 [id number] Juaquin Fritz MD /nt
[2019-03-06 20:21] VITALS: BP 132/70
--- NOTE | 2019-03-07 02:13 | NUR ---
Nursing grouped cares to provide minimum disturbance NOC. Patient rested quietly most of NOC. Patient was assisted with a bath prior to HS and appeared more relaxed after. Patient is working towards discharge goals. Nursing will continue to monitor.
[2019-03-07 05:34] LABS: HEMATOCRIT 36.6 % (42.0-52.0); HEMOGLOBIN 11.9 gm/dL (14.0-18.0); MCHC 32.6 g/dL (28.0-37.0); MCV 101.3 fL (80.0-100.0); RBC 3.61 mil/uL (4.50-6.00); RDW 14.5 % (10.5-14.5); WBC 7.6 thou/uL (4.0-11.0)
[2019-03-07 05:48] VITALS: BP 101/60
[2019-03-07 08:28] VITALS: BP 127/66
--- NOTE | 2019-03-07 13:46 | NUR ---
DISCHARGE PLANNING. PATIENT ADMITTED FROM [facility]. PLAN IS FOR PATIENT TO RETURN TO [facility] ONCE MEDICALLY READY. PATIENT CLINICALS FAXED TO [facility], VERIFIED RECEIVED. FOLLOWING TO ASSIST.
--- NOTE | 2019-03-07 14:37 | NUR ---
CHARLOTTE reviewed chart and spoke with nursing. Pulm consulted for possible bronch. Order for CT of the head due to headache. site planner faxed clinical info to [facility] for review. Plan is for pt to return to [facility] when medically stable. CHARLOTTE is following to assist as needed with discharge planning.
[2019-03-07 19:57] VITALS: BP 111/68
--- NOTE | 2019-03-08 04:04 | NUR ---
Nursing assisted patient with ROM exercises of all extremities and encoraged patient to move his left arm. She reported having a headache this evening. Patient is working towards his discharge goals; nursing will continue to monitor.
[2019-03-08 04:23] VITALS: BP 123/65
[2019-03-08 08:10] VITALS: BP 128/72
[2019-03-08 15:29] VITALS: BP 135/69
--- NOTE | 2019-03-08 16:02 | NUR ---
SW reviewed chart. Pt to have bronch today per pulm. Plan is for pt to return to [facility] when medically stable. CHARLOTTE is following to assist as needed with discharge planning.
--- NOTE | 2019-03-08 17:19 | NUR ---
PT CARE ASSUMED APPROX 0700. ASSESSMENT CHARTED. PT DENIES SOA. REPORTS INTERMITTENT HEADACHE THAT IS BEING ADEQUATELY MANAGED WITH CURRENT POC. VSS. TURNING Q2HRS AND PRN. EXTERNAL CATH REPLACED. C/D/I AT THIS TIME. PT TOLERATING POC. DENIES QUESTIONS AND CONCERNS REGARDING POC. NO DISTRESS NOTED.
[2019-03-08 20:45] VITALS: BP 134/57
[2019-03-09] VITALS (9 sets, daily range): BP systolic 108–150; BP diastolic 60–88
--- NOTE | 2019-03-09 03:30 | NUR ---
CONTINUES ON IV FLUIDS. RESTING QUIETLY. CALLS FOR ASSIST WITH HELP. SAT IN CHAIR UNTIL ABOUT 2200 TONIGHT. CAREPLAN REVIEWED. DENIES PAIN.
--- NOTE | 2019-03-09 14:22 | NUR ---
PT C/O SOB THIS AFTERNOON. INCREASE OXYGEN VIA NC TO 5L FROM 3L TO KEEP O2SAT AT 90%. CONTACT DR. DENG TO INFORM. INSTRUCTED TO OBTAIN STAT PORTABLE CHEST XRY AND KEEP PT NPO AFTER MIDNIGHT FOR BROCHOSCOPY IN AM. WILL CONTINUE TO ASSESS.
--- NOTE | 2019-03-09 15:45 | NUR ---
SW reviewed chart and spoke with nursing. Pt to NPO after midnight for bronch tomorrow. demand planner to fax clinical updateds to [facility] tomorrow. CHARLOTTE is following to assist as needed with discharge planning.
[2019-03-09 16:15] LABS: APTT 36.8 Seconds (24.5-32.8); PROTIME 10.8 Seconds (9.3-11.4)
--- NOTE | 2019-03-09 16:22 | NUR ---
CALLED REPORT TO ICU. WILL TRANSPORT PT TO ROOM 236.
--- NOTE | 2019-03-09 18:12 | NUR ---
PT TRANSFERED DOWN HERE FOR SOB REQUIRING MORE OXYGEN AND NOW ON BIPAP. LUNGS ARE COARSE TO DIMINISHED. SINUS TACHYCARDIA ON THE MONITOR. CONDOM CATH IN PLACE. RESPIRATORY AT BEDSIDE TO PLACE ON BIPAP MACINE. DENIES ANY PAIN ISSUES. BOOTS ON BILAERAL QUAD AND STROKE WITH SLURRED SPEECH. CALL LIGHT WITHIN REACH IF NEEDS ASSISTANCE
[2019-03-10] VITALS (50 sets, daily range): BP systolic 99–142; BP diastolic 54–82
[2019-03-10 04:36] LABS: ABSOLUTE NEUTROPHILS 7.4 thou/uL (1.4-8.2); BASOPHILS 0.5 % (0.0-2.0); EOSINOPHILS 0.1 % (0.0-3.0); HEMATOCRIT 34.5 % (42.0-52.0); HEMOGLOBIN 11.3 gm/dL (14.0-18.0); LYMPHOCYTES 10.9 % (24.0-44.0); MCH 32.8 pg (26.0-34.0); MCHC 32.7 g/dL (28.0-37.0); MCV 100.5 fL (80.0-100.0); MONOCYTES 3.2 % (1.0-8.0); PLATELET COUNT 263 thou/uL (150-400); POLYS 85.3 % (36.0-66.0); RBC 3.43 mil/uL (4.50-6.00); RDW 14.2 % (10.5-14.5); WBC 8.7 thou/uL (4.0-11.0)
[2019-03-10 04:43] LABS: ALBUMIN 2.2 g/dL (3.4-5.0); CALCIUM 10.4 mg/dL (8.5-10.1); CREATININE 0.8 mg/dL (0.7-1.3); POTASSIUM 4.5 mmol/L (3.5-5.1); TOTAL BILIRUBIN 0.5 mg/dL (<0.1-1.0); TOTAL PROTEIN 7.2 g/dL (6.4-8.2)
[2019-03-10 06:00] LABS: BE(vivo) 1.1 mmol/L (-2 to +3); HCO3 27.4 mmol/L (22.0-26.0); PCO2 50.5 mmHg (35.0-45.0); PO2 69.8 mmHg (80.0-100.0); pH 7.352 (7.360-7.450); sO2 93.1 % (92.0-98.0)
--- NOTE | 2019-03-10 07:14 | NUR ---
PATIENT TRANSFER TO ICU. WILL NEED NEW ORDERS DUE TO CHANGE IN STATUS.
--- NOTE | 2019-03-10 10:31 | 2DMMODE ---
[facility] @[place] [address] 2 D/M-MODE ECHOCARDIOGRAM Name: DAMIÁN MERRILL STEVE Room #: 236-P ADM IN M.R.#: [id number] Admission: 03/04/19 Attend Phys: Kevin Villalta MD Discharge: Date of : 67 Report #: [id number] THIS REPORT FOR: //name// APPROVED REPORT Study performed: 03/10/2019 07:36:10 EXAM: Comprehensive 2D, Doppler, and color-flow Echocardiogram Patient Location: ICU Room #: [facility] Status: routine BSA: 2.11 HR: 86 bpm BP: 102/56 mmHg Rhythm: NSR Other Information Study Quality: Technically DifficultTechnically Limited Indications Congestive Heart Failure COPD Hypertension/HDD 2D Dimensions Ascending Ao: 40.19 (22-36mm) IVC: 25.00 mm Aortic Valve AoV Peak Real.: 1.92 m/s AO Peak Gr.: 14.68 mmHg LVOT Max P.05 mmHg LVOT Max V: 1.23 m/s Mitral Valve E/A Ratio: 1.2 MV Decel. Time: 250.26 ms MV E Max Real.: 1.20 m/s MV A Real.: 1.01 m/s MV PHT: 72.58 ms IVRT: 78.43 ms Pulmonary Valve PV Peak Real.: 1.14 m/s PV Peak Gr.: 5.16 mmHg [facility] [address] [place] [address] 2 D/M-MODE ECHOCARDIOGRAM Name: DAMIÁN MERRILL Room #: 236-P ADM IN M.R.#: [id number] Admission: 03/04/19 Attend Phys: Kevin Villalta MD Discharge: Date of : 67 Report #: [id number] Pulmonary Vein P Vein S: 0.44 m/s P Vein A: 0.27 m/s P Vein D: 0.40 m/s P Vein A Dur.: 87.7 msec P Vein S/D Ratio: 1.10 Tricuspid Valve TR Peak Real.: 4.02 m/s TR Peak Gr.: 64.62 mmHg PA Pressure: 75.00 mmHg Left Ventricle The left ventricle is normal size. There is normal LV segmental wall motion. There is normal left ventricular wall thickness. Left ventricular systolic function is hyperdynamic. LVEF is 65-70%. The left ventricular diastolic function is abnormal. Right Ventricle The right ventricle is normal size. The right ventricular systolic function is normal. Atria The left atrium size is normal. Right atrium is dilated. Aortic Valve The aortic valve is normal in structure. The Aortic valve is sclerotic. Moderate aortic regurgitation. There is no aortic valvular stenosis. Mitral Valve The mitral valve is normal in structure. There is no mitral valve regurgitation noted. No evidence of mitral valve stenosis. Tricuspid Valve The tricuspid valve is normal in structure. There is mild tricuspid regurgitation. Estimated PAP 75 mmHg. There is severe pulmonary hypertension. Pulmonic Valve The pulmonary valve is normal in structure. Trace pulmonic regurgitation. Great Vessels The aortic root is normal in size. Ascending aorta is dilated. Descending aorta is dilated. IVC is dilated. Pericardium [facility] [address] [place] [address] 2 D/M-MODE ECHOCARDIOGRAM Name: DAMIÁN MERRILL Room #: 236-P [facility] IN ..#: [id number] Admission: 03/04/19 Attend Phys: Kevin Villalta MD Discharge: Date of : 67 Report #: [id number] There is no pericardial effusion. <Conclusion> The left ventricle is normal size. LVEF is 65-70%. The aortic valve is normal in structure. The Aortic valve is sclerotic. Moderate aortic regurgitation. The mitral valve is normal in structure. The tricuspid valve is normal in structure. There is mild tricuspid regurgitation. Estimated PAP 75 mmHg. There is severe pulmonary hypertension. The pulmonary valve is normal in structure. Trace pulmonic regurgitation. There is no pericardial effusion. <ELECTRONICALLY SIGNED> By: Vish Marti MD 03/10/19 1031 1031 1031 Vish Marti MD /INF
--- NOTE | 2019-03-10 14:40 | NUR ---
TRANSFER TO ICU FOR BRONCH DONE THIS AM. POSSIBLE LP IN IR TODAY ALSO. PT RESIDES IN LTC AT [facility] AND WILL RETURN WHEN MEDICALLY STABLE. NO W/E DC PLANNED.
[2019-03-10 16:00] LABS: CSF CLARITY CLOUDY; CSF COLOR RED; VOLUME 8 ml
[2019-03-10 16:14] LABS: CSF GLUCOSE 69 mg/dL (40-70); CSF PROTEIN 132 mg/dL (15-45)
[2019-03-10 17:30] LABS: CSF RBC 17100 /mm3; CSF WBC 3 /mm3 (0-10)
[2019-03-11] VITALS (23 sets, daily range): BP systolic 93–117; BP diastolic 48–71
[2019-03-11 00:07] LABS: HIV-1 BY PCR <40 (())
[2019-03-11 06:22] LABS: CALCIUM 9.5 mg/dL (8.5-10.1); CREATININE 0.8 mg/dL (0.7-1.3); POTASSIUM 4.4 mmol/L (3.5-5.1)
--- NOTE | 2019-03-11 18:36 | NUR ---
PT AFEBRILE TODAY. WEANING O2 ABLE TO KEEP O2 SATS >92%. CT OF ABD/PELVIS DONE THIS AFTERNOON. EXTERNAL CATH CHANGED THIS AM. INCONTIENT OF STOOLS X2 TODAY. WILL CONTINUE TO MONITOR PATIENT.
[2019-03-12] VITALS (22 sets, daily range): BP systolic 81–129; BP diastolic 50–87
[2019-03-12 05:02] LABS: HEMATOCRIT 34.3 % (42.0-52.0); HEMOGLOBIN 11.2 gm/dL (14.0-18.0); MCH 32.9 pg (26.0-34.0); MCHC 32.6 g/dL (28.0-37.0); MCV 101.2 fL (80.0-100.0); RBC 3.39 mil/uL (4.50-6.00); RDW 14.8 % (10.5-14.5)
[2019-03-12 05:14] LABS: CALCIUM 9.7 mg/dL (8.5-10.1); CREATININE 0.8 mg/dL (0.7-1.3); POTASSIUM 4.7 mmol/L (3.5-5.1)
--- NOTE | 2019-03-12 05:54 | NUR ---
ASSUMED CARE OF PATIENT AT 1900. VSS, AFEBRILE. RESTING WELL THROUGH THE NIGHT. C/O HEADACHE 1 TIME, RELIEVED WITH TYLENOL. BATH GIVEN, TURNED Q2. EXTERNAL MALE CATHETER REPLACED PER PATIENT REQUEST. PROGRESSING TOWARDS POC GOALS.
[2019-03-12 16:06] LABS: ADENOVIRUS Negative (Negative); INFLUENZA A Negative (Negative); INFLUENZA B Negative (Negative); METAPNEUMOVIRUS Negative (Negative); PARAINFLUENZA 1 Negative (Negative); PARAINFLUENZA 2 Negative (Negative); PARAINFLUENZA 3 Negative (Negative); RHINOVIRUS Negative (Negative); RSV A Negative (Negative); RSV B Negative (Negative)
[2019-03-12 18:18] LABS: URINE BILIRUBIN NEGATIVE (Negative); URINE BLOOD 1+ (Negative); URINE CLARITY CLEAR; URINE COLOR YELLOW; URINE GLUCOSE-RANDOM* NEGATIVE (Negative); URINE KETONES NEGATIVE (Negative); URINE LEUKOCYTES-REFLEX NEGATIVE (Negative); URINE NITRITE-REFLEX NEGATIVE (Negative); URINE PROTEIN (DIPSTICK) NEGATIVE (Negative); URINE SPECIFIC GRAVITY <= 1.005 (1.005-1.035); URINE UROBILINOGEN 0.2 E.U./dl (0.2-1.0)
[2019-03-12 18:30] LABS: BACTERIA-REFLEX 1-9 Few /HPF (None Seen); CASTS None Seen /LPF (None Seen); CRYSTALS None Seen /LPF (None Seen); SQUAMOUS 0-3 Few /LPF (0-3); URINE RBC 3-10 Few /HPF (0-2); URINE WBC-REFLEX None Seen /HPF (0-5)
[2019-03-13] VITALS (19 sets, daily range): BP systolic 92–118; BP diastolic 49–83
[2019-03-13 05:44] LABS: CALCIUM 9.5 mg/dL (8.5-10.1); CREATININE 0.8 mg/dL (0.7-1.3); POTASSIUM 5.5 mmol/L (3.5-5.1)
--- NOTE | 2019-03-13 06:00 | NUR ---
PT AWAKE AND ALERT. DID NOT SLEEP AT ALL TONIGHT. WATCHED TV PLAYED ON HIS COMPUTER. HAD 3 MOD SOFT BROWN STOOLS TONIGHT. BATHED. TURNED Q 2 HRS
--- NOTE | 2019-03-13 09:51 | NUR ---
Nutrition: pt admitted with SOA, PNA, S/P bronch. Hx of HIV, CVA, quad. Pt eating well on regular diet. Able to order meals if desired. Possible need for soft tissue bx per rounds. Transexual male with hx of silicone breast injections. On 3 different diuretics. No recent weight changes per pt. K-5.5 today. Previously WNL. Follow trends for need to restrict K+ in diet. Low risk
--- NOTE | 2019-03-13 12:35 | HC ---
[facility] [place] [address] CONSULTATION Name: DAMIÁN MERRILL Room #: 236-P ADM IN M.R.#: [id number] Admission: 03/04/19 Attend Phys: Kevin Villalta MD Discharge: Date of : 67 Report #: [id number] THIS REPORT FOR: //name// CC: Kevin Villalta DATE OF SERVICE: 03/12/2019 REASON FOR CONSULTATION: Possible chest or gluteal mass biopsy. ASSESSMENT: 1. Cosmetic implant of bilateral breasts and bilateral hips. 2. Respiratory failure. RECOMMENDATIONS: 1. Thank you for the consultation. I will follow along. 2. The patient has previous silicone injections of bilateral chest and bilateral hips performed in 1994. These are very hard on physical exam. On CT scan, they are one discrete mass in the chest. 3. I can consider biopsying this if the medical teams feel as though this would be high yield; however, these are cosmetic in nature and unless underlying pathology strongly presumed to be stemming from these, biopsy may not be that high yield. 4. We will discuss with medical teams and follow along. 5. The patient does not have an abscess or extremely thickened breast tissue as mentioned on CT. HISTORY OF PRESENT ILLNESS: The patient presented to the ER on 03/04/2019 with pneumonia. She was improving; however, she yesterday had to be transferred to the ICU for worsening respiratory failure. CT scans were performed and demonstrated subcutaneous masses in the bilateral chest and gluteal regions. PAST MEDICAL HISTORY: 1. HIV. 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 3. GERD. 4. Cervical spinal stenosis. 5. History of stroke. 6. Quadriplegia, incomplete. SOCIAL HISTORY: 1. Resides in a healthcare center. 2. Male to female transgender. FAMILY HISTORY: Denies coagulopathy or malignancy. REVIEW OF SYSTEMS: [facility] [address] [place] [address] CONSULTATION Name: DAMIÁN MERRILL Room #: 236-P ADM IN [facility].#: [id number] Admission: 03/04/19 Attend Phys: Kevin Villalta MD Discharge: Date of : 67 Report #: [id number] CONSTITUTIONAL: No fever. No chills. HEENT: Denies blurring of vision, double vision, headaches, hearing loss, sinus drainage or sore throat. Denies blurring of vision, double vision, headaches, hearing loss, sinus drainage or sore throat. CARDIOVASCULAR: Denies chest pain, palpitations, orthopnea or paroxysmal nocturnal dyspnea. GASTROINTESTINAL: No nausea. No vomiting. No diarrhea. No Heartburn. No nausea. No vomiting. No diarrhea. No Heartburn. GENITOURINARY: Denies dysuria or hematuria or kidney stones. No urinary frequency, urgency or incontinence. Denies dysuria or hematuria or kidney stones. No urinary frequency, urgency or incontinence. MUSCULOSKELETAL: No joint pain. No muscle pain. NEUROLOGICAL: Denies tremor, stroke or seizure. Denies tremor, stroke or seizure. HEMATOLOGIC / LYMPHATICS: Denies easy bruising, easy bleeding or enlarged lymph nodes. SKIN: No rash or ulceration. ENDOCRINE: No heat or cold intolerance PSYCHIATRIC: Denies depression, anxiety, or schizophrenia. PHYSICAL EXAMINATION: VITAL SIGNS: Temperature 36.7, pulse 84, blood pressure 118/68, respiratory rate is 11. GENERAL: No apparent distress, alert and oriented x 3. HEENT: PERRLA, EOMI, MMM, NCAT. NECK: Supple. No LAD. CARDIOVASCULAR: Regular rhythm and rate. Hemodynamically stable. Normal capillary refill. Regular rhythm and rate. Hemodynamically stable. Normal capillary refill. PULMONARY: Nonlabored. Clear to auscultation bilaterally. ABDOMEN: Soft, nontender to palpation, no guarding, no rigidity, no rebound tenderness, no hernias. EXTREMITIES: Calves soft, nontender, no edema. SKIN: Bilateral chest injection sites with rock hard consistency to palpation. Overlying skin is normal without erythema, edema, or exudate and clean and dry and intact completely. PSYCHIATRIC: Normal mood and affect Normal mood and affect NEUROLOGICAL: Grossly intact. CN II-XII grossly intact. MUSCULOSKELETAL: 5/5 strength in upper extremities and lower extremities bilaterally. LYMPHATICS: No cervical, inguinal, or supraclavicular lymphadenopathy. LABORATORY DATA: White blood count 6, hemoglobin 11.2, platelets 242. Sodium 136, potassium 4.7, creatinine 0.8. [address] [address] CONSULTATION Name: DAMIÁN MERRILL Room #: 236-P [facility] IN M.R.#: [id number] Admission: 03/04/19 Attend Phys: Kevin Villalta MD Discharge: Date of : 67 Report #: [id number] IMAGING: CT scan of the abdomen and pelvis on 03/11/2019: 1. Abnormal focal area of phlegmonous appearing mass-like inflammatory collection is noticed in the left subcutaneous tissue of the lower chest measuring 9.5 x 8.7 cm in size. There is overlying thickening of the skin suggesting this represents an infectious process or early forming abscess and clinical correlation is recommended. 2. Extensive soft tissue edema and mixed fluids extending through the posterior gluteal soft tissue similar to the left lower chest wall. There is associated skin thickening and inflammatory change suggesting soft tissue infection and phlegmonous change. Contrast could be helpful to better assess if these represent abscess changes or prominent subcutaneous phlegmonous inflammation. 3. No intra-abdominal abscess or bowel obstruction is seen. 4. Multiple interpolar calculi are demonstrated without obstructing stone. There are mixed hemorrhagic and simple cystic changes in the kidneys and underlying renal lesion cannot be excluded without IV contrast. 5. Atherosclerotic changes noted in the aorta. CT of the abdomen and pelvis with contrast on 03/12/2019, impression: 1. Bilateral lower lung infiltrates and small bilateral pleural effusion. 2. The previously identified thickening tissue in the lower left breast is no longer visualized. There is now abnormal thickening of the lower right breast. Extremely dense breast tissue presumed. Clinical correlation is recommended. 3. Extensive thickening of the subcutaneous tissue overlying the hips and buttocks bilaterally. These are numerous rounded small calcifications within the soft tissue in its distribution. Does this patient have connective tissue disorder to account for these findings? Diffuse cellulitis cannot be excluded. Much of this tissue extends beyond the field of view. However, no focal abscess is identified. 4. Numerous nonobstructing intrarenal calculi bilaterally. The burden is greater on the left. <ELECTRONICALLY SIGNED> By: Pilo Rogers MD 03/13/19 1235 [id number] [id number] Pilo Rogers MD /nt
[2019-03-13 23:06] LABS: SYPHILIS AB Non Reactive (Non Reactive)
[2019-03-14 04:59] VITALS: BP 104/58
--- NOTE | 2019-03-14 05:23 | NUR ---
Assumed care of pt @1915. pt was transfered in the recliner with max assist and a collins lift. pt was able to sit in the chair until midnight. pt was hoyered back in bed. pt on 2l nc and sats are wnl. male ext. cath in place and patent. pt denies pain. pt lets staff know when she needs to be repositioned. pt BP was 91/51 at midnight. doctor Pawan called and he said to hold scheduled BP medication. BP this am is 104/58. no s/s of distress. will cont to monitor
[2019-03-14 08:00] VITALS: BP 102/59
--- NOTE | 2019-03-14 08:22 | NUR ---
FOLLOWING UP ON REQUEST TO CHECK ON PT'S NEVIRAPINE FROM [facility]. SPOKE WITH NURSE AND LEFT VM FOR D.O.N. TO SEE IF ABLE TO OBTAIN THIS MED FROM FACILITY FOR USE AT [facility]. DISCUSSED WITH DR. PÉREZ LYNNE AND HE INDICATES NO LONGER NECESSARY PT DC TIMELINE LIKELY 03/15/19. UPDATED [facility] D.O.N. AND REQUESTED DC TECHNICAL LABORATORY ASST FAX UPDATED CLIICAL TO FACILITY. PT NOW ON UNIT 4W AND UPDATED UNIT UX MANAGER AND RN CM.
--- NOTE | 2019-03-14 09:47 | NUR ---
FAXED CLINICAL UPDATE TO [facility] SPOKE WITH MINDI IN ADM SHE RECEIVED UPDATE. DP TO FOLLOW.
--- NOTE | 2019-03-14 11:20 | NUR ---
Received awake on bed. Due medications given as prescribed, able to swallow meds w/o difficulty. A+O. Pt quadriplegic, assisted in ADLs. With O2 at 2lpm via nasal cannula and Bipap- pt using as needed. On regular diet- tolerating well; no nausea, no vomiting and no abdominal pain noted. Assisted in ADLs, eating and drinking. With male external segura in place- draining well, output measured and recorded accordingly. With 1/2NS at 100cc/hr, infusing well at R AC. Falls bundle in place. Pt seen by Dr Villalta- update given to the pt- to continue medications, O2 and to monitor BP- with episode of hypotension last night, a/w antibiotic regimen then for discharge back to SNF. Maintained on isolation, precautions noted.
[2019-03-14 12:41] LABS: CALCIUM 10.5 mg/dL (8.5-10.1); CREATININE 0.9 mg/dL (0.7-1.3); POTASSIUM 5.9 mmol/L (3.5-5.1)
[2019-03-14 13:10] LABS: HSV 1 DNA Negative (Negative); HSV 2 DNA Negative (Negative)
[2019-03-14 13:10] LABS: CSF VDRL Non Reactive (Non Rea:<1:1)
[2019-03-14 14:11] LABS: ANA INTERPRETATION Negative (Negative)
[2019-03-14 15:00] VITALS: BP 106/63
--- NOTE | 2019-03-14 15:07 | PATH ---
[facility] [address] [place] [address] PATHOLOGY RPT PROCEDURE Name: DAMIÁN MERRILL Room #: 451-P ADM IN M.R.#: [id number] Admission: 03/04/19 Date of : 67 Discharge: Report #: [id number] Path Case #: [id number] Note [facility] Accession Number: [id number] TESTS RESULT FLAG UNITS REF RANGE LAB Clinician Provided Cytology Information No. of containers..01 Other (Miscellaneous) Source: 01 RUL BAL DIAGNOSIS: 02 RUL BAL NEGATIVE FOR MALIGNANT CELLS. NORMAL BRONCHIAL CELLS AND MACROPHAGES ARE PRESENT. PULMONARY MACROPHAGES (DUST CELLS) ARE PRESENT. SILVER METHENAMINE STAINED SMEARS ARE NEGATIVE FOR PNEUMOCYSTIS JIROVECI. FUNGAL ORGANISMS IN THE FORM OF YEAST AND PSEUDOHYPHAE ARE PRESENT. Pathologist ICD10: 02 J18.9 Signed out by: 02 Julianne Marquez MD, Pathologist NPI- [id number] Performed by: Tanisha Bacon, Bedspread Seamer ([facility]) Gross description: 01 4ML, RED, CLOUDY /LCS 03/13/2019 1304 Local FLAG LEGEND: L-Low Normal,H-High Normal,LL-Alert Low,HH-Alert High <-Panic Low,>-Panic High,A-Abnormal,AA-Critical Abnormal Performed at: [address] [place] [address] Long Mendez MD, [address] [address] Julianne Marquez MD, Specimen Comment: A courtesy copy of this report has been sent to [phone] Specimen Comment: [id number] Specimen Comment: Report sent to Performed at: [address], [place], [place] [address] MD Long Mendez MD Phone: [phone]
--- NOTE | 2019-03-14 16:24 | NUR ---
ANTICIAPTE THAT PT WILL BE MEDICALLY STABLE TO RETURN TO [facility] TOMORROW. CLINICAL UPDATE SENT. CM TO FOLLOW INDICATED WITH DC PLANNING.
[2019-03-14 19:04] VITALS: BP 130/66
--- NOTE | 2019-03-14 20:16 | NUR ---
Received awake on bed. Due medications given as prescribed, able to swallow medications w/o difficulty. A+Ox4. Pt quadriplegic, assisted in ADLs. With O2 at 2lpm via nasal cannula and Bipap- pt using as needed. On regular diet- tolerating well; no nausea, no vomiting and no abdominal pain noted. Assisted in ADLs. With male external segura in place-draining well, output measured and recorded accordingly. With 1/2 NS at 100cc/hr, infusing well at R AC. Falls bundle in place. Pt seen by Dr Villalta- update given to the pt, to continue medications, O2 and to monitor BP- with episode of hypotension last night, a/w antibiotic regimen then to d/c back to SNF- CM aware. Maintained on isolation. Pt requested to be hoyered out to the chair before dinner time, informed pt that will ask help from the assistant shift supervisor since we only have 1 tech in the floor right now- pt agreed; informed assistant shift supervisor nurse to have pt sat out on the chair via collins lift. Pt's male external segura came off this PM and changed to a new one- draining well.
[2019-03-15 02:11] VITALS: BP 125/70
--- NOTE | 2019-03-15 02:59 | NUR ---
progress pt progressing lungs with coarse lung sounds occasional productive cough sputum not observed. o2 sats wnl on ra upper 90's. rt treatments continue. o2 at 2 liters prn and bipap prn. c/o left hip pain given tylenol per pt request pt resting on and off after. up to chair x 4 hours with collins lift tolerated well. Daughter at bedside upset pt is almost ready to be discharged plans on speaking to social work tomorrow in regards to placement.
[2019-03-15 06:21] LABS: CALCIUM 10.2 mg/dL (8.5-10.1); CREATININE 0.9 mg/dL (0.7-1.3)
[2019-03-15 06:25] LABS: POTASSIUM 6.3 mmol/L (3.5-5.1)
[2019-03-15 07:38] VITALS: BP 102/59
[2019-03-15 08:07] LABS: ADENOVIRUS Negative (Negative); INFLUENZA A Negative (Negative); INFLUENZA B Negative (Negative); METAPNEUMOVIRUS Negative (Negative); PARAINFLUENZA 1 Negative (Negative); PARAINFLUENZA 2 Negative (Negative); PARAINFLUENZA 3 Negative (Negative); RHINOVIRUS Negative (Negative); RSV A Negative (Negative); RSV B Negative (Negative)
--- NOTE | 2019-03-15 14:23 | NUR ---
PT A&OX4, VSS, DENIES PAIN. PATIENT LUNGS ARE CLEAR/DIMINISHED, NO COUGH NOTED, BREATHING REGULAR. IV REMAINS IN RIGHT AC. CONDOM CATHETER REMAINS PATENT. PATIENT TOLERATED DIET. AWAITING NEW LABS WHICH ARE PENDING, K+ 6.3 THIS AM. PATIENT IS IN NO DISTRESS. PATIENT REPORT GIVEN TO ONCOMING NURSE APPROX 1315.
[2019-03-15 14:32] LABS: CALCIUM 11.1 mg/dL (8.5-10.1)
[2019-03-15 14:35] LABS: POTASSIUM 6.3 mmol/L (3.5-5.1)
[2019-03-15 19:38] VITALS: BP 132/68
[2019-03-16 05:50] LABS: BASOPHILS 0.1 % (0.0-2.0); EOSINOPHILS 0.1 % (0.0-3.0); HEMATOCRIT 36.9 % (42.0-52.0); MCH 32.7 pg (26.0-34.0); MCHC 32.4 g/dL (28.0-37.0); PLATELET COUNT 174 thou/uL (150-400); POLYS 61.8 % (36.0-66.0); RBC 3.65 mil/uL (4.50-6.00); RDW 14.7 % (10.5-14.5); WBC 6.5 thou/uL (4.0-11.0)
[2019-03-16 06:03] LABS: CALCIUM 9.8 mg/dL (8.5-10.1); CREATININE 0.8 mg/dL (0.7-1.3); POTASSIUM 4.5 mmol/L (3.5-5.1)
--- NOTE | 2019-03-16 06:27 | NUR ---
progress pt a/o x4. lungs diminished no coughing noted. potassium 4.5 this morning had 3 large liquid stools last night after 2 doses of kaoxylate during day shift. condom catheter in place draining large amounts of urine. denies pain. ivf's continue to infuse as order pt tolerating diet and has adequate po intake. hopes to dc back to his facility today.
[2019-03-16 07:43] VITALS: BP 111/61
[2019-03-16 10:56] LABS: HSV PCR SOURCE CSF
[2019-03-16] MEDS ORDERED: LEVAQUIN 500 M500 M1 PO (12:22)
[2019-03-16] MEDS ORDERED: BACTRIM DS TAB1 EACH PO (12:23)
[2019-03-16] MEDS ORDERED: NORVASC5 MG PO (12:24)
[2019-03-16] MEDS ORDERED: NEURONTIN 300300 M1 PO (12:26)
[2019-03-16] MEDS ORDERED: RAYOS5 MG PO (12:30)
--- NOTE | 2019-03-16 14:52 | NUR ---
DISCHARGE ORDERS COMPLETED. PATIENT DISCHARGING TO [facility]. CALL PLACED TO [facility] TO NOTIFY OF DISCHARGE, SPOKE WITH MINDI. DISCHARGE ORDERS FAXED TO MINDI, VERIFIED RECEIVED. [facility] DOES NOT PROVIDE TRANSPORTATION. [facility] TO PROVIDE WHEELCHAIR TRANSPORTATION, 16-1630 HOURS. CALL PLACED TO BROTHER CRYSTAL TO NOTIFY. UNABLE TO NOTIFY/LEAVE VOICEMAIL. MAIL BOX FULL ON CONTACT NUMBER PROVIDED. UNIT RN NORIFIED AND CONTACT NUMBER FOR REPORT PROVIDED. CHART COPY COMPLETED PER APPLIANCE PAINTER AND REFINISHER. UNIT SW AWARE.
--- NOTE | 2019-03-16 16:33 | NUR ---
Assumed pt care at 7am.Pt in bed most of the times sleeping on and off and sometimes watching tv.Repositioned q2h in bed for comfort.Assisted with tray set up at all meals.Good appetite.Pt tolerated meds.Dr Villalta here, dc order noted.Dc summary compile and placed in transfer envelope.Saline lock dc'd. Pt refused to dc home with experess per wc.He said he prefer cart.[facility] transporter will be back at 1800 to poultry picker pt.Bed alarm in use for safety. Will continue to monitor.
[2019-03-16 16:38] VITALS: BP 119/64
--- NOTE | 2019-03-16 19:28 | NUR ---
DISCHARGE PT DISCHARGED TO [facility] VIA STRETCHER. VSS, ON ROOM AIR, [place] CATHETER IN PLACE. DISCHARGE PACKET GIVEN TO HOGSHEAD DUMPER. LAPTOP, EARTH BURNER, HEADPHONES, MOUSE, CELLPHONE AND EARTH BURNER, CLOTHING AND PERSONAL CARE ITEMS IN LUGGAGE BAG. PROFO BOOTS AND WAFFLE CUSHION SENT WITH PT ALONG WITH PERSONAL RIGHT HAND SPLINT.
== END 2019-03-16 19:39 | DRG 974 ==
LOC: ER 08:38 → EROBS 11:28 → 3W 11:28 → 4W 11:28 → 3W 11:39 → ICU 03-09 16:46 → 4W 03-13 15:53
PROVIDERS: Emergency Medicine; Internal Medicine; Internal Medicine Infectious Disease; Internal Medicine Pulmonary Disease; Nurse Practitioner Family; Specialist; Surgery; ADMIT Internal Medicine
PROC: 5A09357 Assistance with Respiratory Ventilation, Less than 24 Consecutive Hours, Continuous Positive Airway Pressure (ICD-10-PCS; principal; 2019-03-09)
PROC: 0B9C8ZX Drainage of Right Upper Lung Lobe, Via Natural or Artificial Opening Endoscopic, Diagnostic (ICD-10-PCS; 2019-03-10)
PROC: 5A09357 Assistance with Respiratory Ventilation, Less than 24 Consecutive Hours, Continuous Positive Airway Pressure (ICD-10-PCS; 2019-03-10)
PROC: 5A09357 Assistance with Respiratory Ventilation, Less than 24 Consecutive Hours, Continuous Positive Airway Pressure (ICD-10-PCS; 2019-03-11)
DX: B20 Human immunodeficiency virus [HIV] disease (principal); J18.9 Pneumonia, unspecified organism; G82.50 Quadriplegia, unspecified; J96.21 Acute and chronic respiratory failure with hypoxia; J96.22 Acute and chronic respiratory failure with hypercapnia; N39.0 Urinary tract infection, site not specified; I50.9 Heart failure, unspecified; I11.0 Hypertensive heart disease with heart failure; K21.9 Gastro-esophageal reflux disease without esophagitis; E78.5 Hyperlipidemia, unspecified; I25.10 Atherosclerotic heart disease of native coronary artery without angina pectoris; F64.0 Transsexualism; M48.02 Spinal stenosis, cervical region; J44.9 Chronic obstructive pulmonary disease, unspecified; G47.33 Obstructive sleep apnea (adult) (pediatric); Z53.29 Procedure and treatment not carried out because of patient's decision for other reasons; E87.5 Hyperkalemia; Z86.73 Personal history of transient ischemic attack (TIA), and cerebral infarction without residual deficits; Z85.828 Personal history of other malignant neoplasm of skin; Z79.899 Other long term (current) drug therapy; Z79.51 Long term (current) use of inhaled steroids; Z79.82 Long term (current) use of aspirin
CPT/HCPCS: 10047; 10078; 10879

== ENCOUNTER 2019-10-24 14:05 | Inpatient (IN) | payer OTHER ==
[~2019-10-24] VITALS: Ht 175.3 cm; Wt 90.3 kg
[2019-10-24 14:05] VITALS: BP 151/82
[~2019-10-24 14:05] MED LIST changes: +ARTIFICIAL TEAR1510 OPHTHALMIC; +BIOTENE1000 ML SWISH&SPIT; +FAMOTIDINE 20 M20 MG PO; +FLOMAX0.4 MG PO; +FOSAMAX 70 MG T70 MG PO; +HYDROCHLOROTHIA25 M2 PO; +LEVAQUIN 500 M500 M1 PO; +METOPROLOL TART25 MG PO; +NORVASC5 MG PO; +RAYOS5 MG PO; +SILTUSSIN DM C118 ML PO; +SPIRONOLACTONE25 MG PO; +SYMBICORT160 MCG/4. INH; +TRAZODONE HCL50 MG PO
[2019-10-24 15:11] LABS: ABSOLUTE NEUTROPHILS 6.3 thou/uL (1.4-8.2); BASOPHILS 0.4 % (0.0-2.0); EOSINOPHILS 0.3 % (0.0-3.0); HEMATOCRIT 35.9 % (42.0-52.0); HEMOGLOBIN 11.8 gm/dL (14.0-18.0); MCH 33.2 pg (26.0-34.0); MCHC 32.8 g/dL (28.0-37.0); MCV 101.2 fL (80.0-100.0); MONOCYTES 9.9 % (1.0-8.0); PLATELET COUNT 205 thou/uL (150-400); POLYS 70.4 % (36.0-66.0); RBC 3.55 mil/uL (4.50-6.00); RDW 15.6 % (10.5-14.5); WBC 8.9 thou/uL (4.0-11.0)
[2019-10-24 15:23] LABS: ANION GAP 7 mmol/L (7-16); BUN 24 mg/dL (7-18); CALCIUM 9.4 mg/dL (8.5-10.1); CHLORIDE 100 mmol/L (98-107); CO2 29 mmol/L (21-32); CREATININE 0.9 mg/dL (0.7-1.3); GLUCOSE 122 mg/dL (74-106); POTASSIUM 3.9 mmol/L (3.5-5.1); SODIUM 136 mmol/L (136-145)
[2019-10-24 15:33] LABS: ALBUMIN 2.6 g/dL (3.4-5.0); SGOT 39 U/L (15-37); SGPT 32 U/L (30-65); TOTAL BILIRUBIN 0.2 mg/dL (0.2-1.0); TOTAL PROTEIN 6.8 g/dL (6.4-8.2); TROPONIN-I <0.06 ng/mL (<0.06)
--- NOTE | 2019-10-24 16:03 | NUR ---
COVID PRECAUTIONS INTITIATED AT ARRIVAL TO ED
--- NOTE | 2019-10-24 21:20 | NUR ---
CONTACTED RT AT THIS TIME FOR THE BREATHING TREATMENTS THAT WERE DUE AT 1900 ANA PATIENT CALLED OUT FOR SHORTNESS OF BREATH. RT STATES THAT SHE WILL GET TO IT WHEN SHE CAN OR THEY WILL GET THE NEXT SCHEDULED TREATMENTS BECAUSE SHE IS BUSY WITH ANOTHER PATIENT.
[2019-10-24 22:08] VITALS: BP 188/86
[2019-10-24] MEDS ORDERED: acidophilus PO (22:44)
[2019-10-24] MEDS ORDERED: ACIDOPHILUS PO (22:45)
[2019-10-24] MEDS ORDERED: NORVASC 2.5 MG2.5 M1 PO (22:46)
[2019-10-24 22:48] VITALS: BP 188/86
[2019-10-24 23:25] VITALS: BP 169/72
[2019-10-25] VITALS (7 sets, daily range): BP systolic 141–177; BP diastolic 68–87
[2019-10-25] MEDS ORDERED: NORVASC 2.5 MG2.5 M1 PO (04:28)
[2019-10-25] MEDS ORDERED: BIOTENE1000 ML (04:30)
--- NOTE | 2019-10-25 05:07 | NUR ---
ASSUME CARE OF PT AT 2230 HRS FROM ED. PT IS AOX4. PT HAS INCOMPLETE QUADRIPLEGIA AND ONLY HAS MOVEMENT TO HIS LEFT HAND. FALL PRECAUTION IN PLACE. PT PLACED IN ENCANCED PRECAUTION FOR R/O COVID. PT HAS A COUGH AND COMPLAINS OF BACK PAIN. PRNS GIVEN. PT WAS ORIENTED TO THE ROOM AND THE UNIT. PT WAS ABLE TO ANSWER ALL ADMISSION RELATED QUESTIONS. COVID TEST COMPLETED IN THE ER, PENDING RESULTS. PT HAS LOM AND PROTECTIVE BOOTS IN PLACE. PT REFUSED SCDS. ORDERS RECEIVED ND STARTED. PT WAS UNABLE TO GET COMFORTABLE DISPITE SEVERAL ATTEMPTS. VSS AND NO S/S OF ACUTE DISTRESS. WILL CONTINUE TO MONITOR.
[2019-10-25 06:25] LABS: HEMATOCRIT 32.2 % (42.0-52.0); HEMOGLOBIN 10.5 gm/dL (14.0-18.0); MCH 33.1 pg (26.0-34.0); MCHC 32.7 g/dL (28.0-37.0); MCV 101.4 fL (80.0-100.0); RBC 3.17 mil/uL (4.50-6.00); RDW 15.4 % (10.5-14.5); WBC 6.9 thou/uL (4.0-11.0)
[2019-10-25 06:35] LABS: CALCIUM 8.7 mg/dL (8.5-10.1); CREATININE 0.7 mg/dL (0.7-1.3); POTASSIUM 3.2 mmol/L (3.5-5.1)
--- NOTE | 2019-10-25 07:39 | EKG ---
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 : 1965 Requested By: Mary De La Torre Order Number: [id number] MD: Jd Mckay Measurements Intervals Rombauer Rate: 80 P: 49 ID: [id number] QRS: 74 QRSD: 94 T: 52 QT: 367 QTc: 424 Interpretive Statements Sinus rhythm Anteroseptal infarct, old Compared to ECG 03/04/2019 08:41:39 Sinus tachycardia no longer present Electronically Signed On 10-25-2019 7:38:56 CDT by Jd Mckay [email or web address] <ELECTRONICALLY SIGNED> By: Jd Mckay MD, [facility] 10/25/19 0738 1438 1438 Jd Mckay MD, [facility] /EPI
--- NOTE | 2019-10-25 12:34 | NUR ---
ASSUMED CARE APPROX 0700. PT ALERT AND ORIENTED X4. ASSESSMENT CHARTED AND VSS. PT AFEBRILE. SR ON TELE MONITOR. PT DENIES PAIN. PT DENIES CHEST PAIN. ON ROOM AIR W/ NO SIGNS OF DISTRESS NOTED. COVID AND MRSA RESULTS STILL PENDING AND AWAITING RESULTS. WILL CONTINUE TO MONITOR.
[2019-10-25] MEDS ORDERED: NEURONTIN 300M300 M2 PO (14:36)
[2019-10-25] MEDS ORDERED: SPIRONOLACTONE25 MG PO (14:37)
[2019-10-25] MEDS ORDERED: MELATONIN3 M1 PO (14:37)
[2019-10-25] MEDS ORDERED: FLORANEX TABLE1 EACH PO (14:37)
[2019-10-25] MEDS ORDERED: MAG-OXIDE400 MG PO (14:38)
[2019-10-25] MEDS ORDERED: HYDRALAZINE 5050 MG PO (14:39)
[2019-10-25] MEDS ORDERED: RAMIPRIL10 MG PO (14:40)
[2019-10-25] MEDS ORDERED: ALBUTEROL INH (14:42)
[2019-10-25 14:49] LABS: CALCIUM 8.5 mg/dL (8.5-10.1); CREATININE 0.6 mg/dL (0.7-1.3); POTASSIUM 4.3 mmol/L (3.5-5.1)
--- NOTE | 2019-10-25 16:16 | NUR ---
INITIAL ASSESSMENT: Nursing referral received. SW reviewed chart and spoke with nursing. Pt was admitted from [facility] due to pneumonia. Pt placed in Enhanced Isolation to r/o COVID-19. Test results are pending at this time. Pt with hx of HIV. Pt also with hx of cervical spinal stenosis and stroke with incomplete quadriplegia. Pt is transgender male to female. Pt prefers to be called "Andra." SW placed call into pt's room. No answer. SW to follow up with pt at a later time. Plan is for pt to return to [facility] when medically stable. SW is following to assist as needed with discharge planning.
--- NOTE | 2019-10-25 21:02 | NUR ---
1900 ASSUMED CARE OF PT AFTER REPORT, 1999 BASELINE ASSESSMENT COMPLETED, PT RESTING IN BED, REPOSITIONED, AND HEELS FLOATED, PT AWAKE ALERT AND ORIENTED X 4, ANSWERING QUESTIONS APPROPRIATELY. LUNGS COARSE BUT CLEAR WITH COUGH, DIMINISHED IN BILAT LL. RESP UNLABORED AT 18, DENIES PAIN, ORAL CARE PROVIDED, WILL CONTINUE TO MONITOR, REFUSES SCD'S AND WILL ALLOW BOOTS AT 0000. FALL PRECAUTIONS IN PLACE
[2019-10-26 06:05] LABS: ABSOLUTE NEUTROPHILS 3.7 thou/uL (1.4-8.2); BASOPHILS 0.4 % (0.0-2.0); EOSINOPHILS 0.1 % (0.0-3.0); HEMOGLOBIN 11.1 gm/dL (14.0-18.0); LYMPHOCYTES 24.1 % (24.0-44.0); MCH 33.1 pg (26.0-34.0); MCHC 32.6 g/dL (28.0-37.0); MCV 101.5 fL (80.0-100.0); MONOCYTES 2.7 % (1.0-8.0); PLATELET COUNT 212 thou/uL (150-400); POLYS 72.7 % (36.0-66.0); RBC 3.35 mil/uL (4.50-6.00)
[2019-10-26 06:30] VITALS: BP 174/89
[2019-10-26 06:37] LABS: CALCIUM 8.8 mg/dL (8.5-10.1); CREATININE 0.6 mg/dL (0.7-1.3); POTASSIUM 4.1 mmol/L (3.5-5.1)
[2019-10-26 07:15] VITALS: BP 155/82
[2019-10-26 08:00] VITALS: BP 150/59
--- NOTE | 2019-10-26 10:16 | NUR ---
CHARLOTTE reviewed chart and spoke with nursing. Pt's COVID test is negative. Pt to transfer to med/surg tele when a bed is available. CHARLOTTE spoke with pt via phone. Introduced role of SW. Pt states that he is w/c bound at the facility. Pt aware that he will be moving to another room. Confirmed plan for pt to return to [facility] when medically stable. SW faxed clinical info and COVID test results to [facility]. Spoke with a nurse who states that they only need one negative test, in order for pt to return. CHARLOTTE is following to assist as needed with discharge planning.
--- NOTE | 2019-10-26 11:06 | NUR ---
08:00AM- INTRODUCED SELF TO PT. HE WAS SLEEPING AND AWOKE TO QUESTION'S, ANSWERED THEM ALL PROPERLY, FOLLOWS COMMANDS. HE HAS NUMEROUS REQUEST'S FOR REPOSITIONING CHANGES WHICH WERE PERFORMED AT THIS TIME. IV SITE FLUSHES WITH SALINE, NO SIGN'S OF INFILTRATION AND IV FLUIDS INFUSING PRESCRIBED AT THIS TIME. MOVED PT. TO HIS LEFT SIDE.
--- NOTE | 2019-10-26 11:10 | NUR ---
CHANGED PT.'S BEDDING AT THIS TIME AND GAVE HIM A FULL SPONGE BATH WELL. EVALUATED THE PERINIUM AREA WHICH IS "TENDER"-PER REPORT AND WASHED IT WITH SOAP AND WATER PER PT.S REQUEST DOES NOT WANT THE WIPES USED ON HIM.NO BREAKDOWN NOTED , BARRIER CREAM APPLIED TO ENTIRE BUTTOCKS AREA.
[2019-10-26 15:00] VITALS: BP 162/77
--- NOTE | 2019-10-26 19:06 | NUR ---
Patient arrived on the floor at 6:45pm, A/O, calm and pleasant. denied pain, eating dinner, no n/v.
--- NOTE | 2019-10-26 19:28 | NUR ---
Called 3 w for vancomycin. The staff Keiven voiced that he would check.
--- NOTE | 2019-10-26 19:30 | NUR ---
1800-Turned pt. at this time. no stool, changed linens. report called to floor nurse for transfer. pt. in good spirits overall and had 3000ml out today post lasix. Cough decreasing and more alert. pain medication easrlier helped his neck pain and spasm's as well.
[2019-10-26 19:37] VITALS: BP 195/77
[2019-10-26 22:09] VITALS: BP 152/71
--- NOTE | 2019-10-27 02:56 | NUR ---
ASSUMED CARE OF PT AT 1900. PT IS A/O X4. LUNGS ARE COARSE. SCHEDULED BRTX GIVEN DIRECTED. PT C/O INSOMNIA,CONSTIPATION, AND A COUGH. PRN MEDICATION GIVEN ORDERED. PT IS SITTING IN HER BED WATCHING TV AT THIS TIME. FALL PRECAUTIONS ARE IN PLACE, CALL LIGHT IS WITHIN REACH. WILL CONTINUE TO MONITOR.
[2019-10-27 03:22] VITALS: BP 169/76
[2019-10-27 05:44] LABS: HEMATOCRIT 34.7 % (42.0-52.0); HEMOGLOBIN 11.2 gm/dL (14.0-18.0); MCH 32.8 pg (26.0-34.0); MCHC 32.3 g/dL (28.0-37.0); MCV 101.5 fL (80.0-100.0); RBC 3.42 mil/uL (4.50-6.00); RDW 15.2 % (10.5-14.5); WBC 5.8 thou/uL (4.0-11.0)
[2019-10-27 05:52] LABS: ALBUMIN 2.4 g/dL (3.4-5.0); CALCIUM 8.8 mg/dL (8.5-10.1); CREATININE 0.6 mg/dL (0.7-1.3); PHOSPHORUS 3.3 mg/dL (2.5-4.9); POTASSIUM 3.9 mmol/L (3.5-5.1)
[2019-10-27 08:06] VITALS: BP 167/84
[2019-10-27] MEDS ORDERED: CEFUROXIME500 MG PO (09:53)
[2019-10-27 10:02] VITALS: BP 167/84
[2019-10-27 10:10] VITALS: BP 167/84
[2019-10-27 10:14] VITALS: BP 167/84
--- NOTE | 2019-10-27 11:49 | NUR ---
ASSUMED CARE, 0700 PT A&OX4, CALM AND PLEASANT, MEDICATIONS WITH PRN MEDS ADMINISTERED ORDERED, NON PRODUCTIVE COUGH, LUNG SOUNDS COURSE, PT C/O OF UNABLE TO SLEEP. CALL LIGHT WIHIN REACH, FALL PRECAUTIONS ARE IN PLACE, WILL CONTINUE TO MONITOR.
--- NOTE | 2019-10-27 13:40 | NUR ---
CARE TEAM INDIATED PT IS MEDICALLY STABLE TO DC BACK TO [facility] THIS DAY. CM CALLED AND NOTIFIED FACILITY. CM FAXED ORDERS AND NEG COVID TEST AGAIN. CM SPOKE WITH PT HE IS AWARE OF DC. CM ARANGED [facility] STRETCH[facility] VAN PICKUP BETWEEN [phone]. NURSE GIVEN NUMBER FOR REPORT. CM CALLED AND NOTIFIED PT'S BROTHER/DPOA CRYSTAL QUEVEDOLIZ HE INDICATED HE HADN'T BEEN INFORMED THAT PT WAS HOSPITALIZED. HE WAS GOING TO REACH OUT TO PT. NO OTHER CM INTERENTION INDICATED. CASE CLOSED.
== END 2019-10-27 15:25 | DRG 193 ==
LOC: ER 14:05 → EROBS 18:30 → 3W 23:10 → 4W 10-26 18:55
PROVIDERS: Hospitalist; Student in an Organized Health Care Education/Training Program; ADMIT Hospitalist; ATTEND Hospitalist
DX: J18.9 Pneumonia, unspecified organism (principal); J96.01 Acute respiratory failure with hypoxia; G82.50 Quadriplegia, unspecified; I10 Essential (primary) hypertension; E78.5 Hyperlipidemia, unspecified; J44.9 Chronic obstructive pulmonary disease, unspecified; Z20.828 Contact with and (suspected) exposure to other viral communicable diseases; Z79.899 Other long term (current) drug therapy; Z86.73 Personal history of transient ischemic attack (TIA), and cerebral infarction without residual deficits
CPT/HCPCS: 10045; 10879

== ENCOUNTER 2019-11-02 20:54 | Inpatient (IN) | payer OTHER ==
[~2019-11-02] VITALS: Ht 175.3 cm; Wt 103.1 kg
[~2019-11-02 20:54] MED LIST changes: +ACIDOPHILUS PO; +ALBUTEROL INH; +BIOTENE1000 ML; +CEFUROXIME500 MG PO; +FLORANEX TABLE1 EACH PO; +HYDRALAZINE 5050 MG PO; +MAG-OXIDE400 MG PO; +MELATONIN3 M1 PO; +NEURONTIN 300M300 M2 PO; +NORVASC 2.5 MG2.5 M1 PO; +RAMIPRIL10 MG PO; +acidophilus PO
[2019-11-02 20:59] VITALS: BP 137/74
[2019-11-02 21:32] LABS: BE(vivo) 3.7 mmol/L (-2 to +3); HCO3 27.3 mmol/L (22.0-26.0); PCO2 37.8 mmHg (35.0-45.0); PO2 56.4 mmHg (80.0-100.0); pH 7.476 (7.360-7.450); sO2 91.3 % (92.0-98.0)
[2019-11-02 21:32] LABS: HEMATOCRIT 39.7 % (42.0-52.0); HEMOGLOBIN 12.9 gm/dL (14.0-18.0); MCH 32.1 pg (26.0-34.0); MCHC 32.4 g/dL (28.0-37.0); MCV 98.9 fL (80.0-100.0); PLATELET COUNT 205 thou/uL (150-400); RBC 4.01 mil/uL (4.50-6.00); RDW 15.1 % (10.5-14.5); WBC 21.1 thou/uL (4.0-11.0)
[2019-11-02 21:36] LABS: URINE BILIRUBIN NEGATIVE (Negative); URINE BLOOD 3+ (Negative); URINE CLARITY CLEAR; URINE COLOR YELLOW; URINE GLUCOSE-RANDOM* NEGATIVE (Negative); URINE KETONES NEGATIVE (Negative); URINE LEUKOCYTES-REFLEX 1+ (Negative); URINE NITRITE-REFLEX NEGATIVE (Negative); URINE PROTEIN (DIPSTICK) 3+ (Negative); URINE SPECIFIC GRAVITY 1.025 (1.005-1.035); URINE UROBILINOGEN 0.2 E.U./dl (0.2-1.0)
[2019-11-02 21:38] LABS: CALCIUM 9.6 mg/dL (8.5-10.1); CREATININE 0.7 mg/dL (0.7-1.3); POTASSIUM 3.8 mmol/L (3.5-5.1)
[2019-11-02 21:45] LABS: URINE RBC >20 Many /HPF (0-2)
[2019-11-02 21:46] LABS: BACTERIA-REFLEX >30 Many /HPF (None Seen); CASTS None Seen /LPF (None Seen); CRYSTALS None Seen /LPF (None Seen); SQUAMOUS 0-3 Few /LPF (0-3); URINE WBC-REFLEX 6-15 Few /HPF (0-5)
[2019-11-02 21:56] LABS: ABSOLUTE NEUTROPHILS 19.2 thou/uL (1.4-8.2); ANISOCYTOSIS 1+
[2019-11-02 21:57] LABS: LARGE PLATELETS OCCASIONAL; POLYCHROMASIA OCCASIONAL
[2019-11-02] MEDS ORDERED: TOPROL XL50 MG (22:31)
[2019-11-03] MEDS ORDERED: LOPRESSOR50 MG PO (02:03)
--- NOTE | 2019-11-03 05:00 | NUR ---
PATIENT TURNED REQUESTED BY STAFF, DISPLEASED OVER NOT BEING IN A HOSPITAL BED NOR UP TO THE FLOOR. STAFF ATTEMPTED TO REDIRECT AND REASSURE PATIENT STAFF IS DOING EVERYTHING POSSIBLE TO SATISFY UNIT AND PATIENT NEEDS/SAFETY.
--- NOTE | 2019-11-03 06:45 | NUR ---
PATIENT REFUSING AM BLOOD DRAW.
[2019-11-03 10:52] LABS: HEMATOCRIT 34.5 % (42.0-52.0); MCH 31.6 pg (26.0-34.0); MCHC 31.8 g/dL (28.0-37.0); MCV 99.4 fL (80.0-100.0); RBC 3.47 mil/uL (4.50-6.00); RDW 15.1 % (10.5-14.5); WBC 25.4 thou/uL (4.0-11.0)
[2019-11-03 10:58] LABS: CALCIUM 8.9 mg/dL (8.5-10.1); CREATININE 0.6 mg/dL (0.7-1.3); POTASSIUM 3.5 mmol/L (3.5-5.1)
[2019-11-03 13:33] VITALS: BP 111/53
[2019-11-03 13:40] VITALS: BP 107/58
[2019-11-03 14:34] VITALS: BP 117/62
[2019-11-03 15:40] VITALS: BP 135/54
--- NOTE | 2019-11-03 17:55 | NUR ---
ASSUMMED PT CARE AT APPROXIMATELY 1430. PT A&O X4. ASSESSMENT CHARTED. FALL PRECAUTIONS IN PLACE. PT DENIES HAVING CHEST PAIN. PT DENIES HAVING SOB. PT DENIES HAVING ACUTE PAIN. COVID TEST SENT TO LAB. ADMISSION COMPLETE. VITAL SIGNS STABLE. PT COMFORTABLE IN BED. PT DENIES HAVING FURTHER CONCERNS.
[2019-11-03 20:30] VITALS: BP 150/69
[2019-11-04 04:15] VITALS: BP 136/58
--- NOTE | 2019-11-04 04:23 | NUR ---
Patient making slow progress towards outcome goals Oxygenation optimal with 2L/NC.Highest temp 99 orally. IVFluids infusing. Total care. Rhythm stable. 11/02/COVID negative x1 2nd swab pending.
[2019-11-04 05:42] LABS: BE(vivo) -3.2 mmol/L (-2 to +3); HCO3 21.1 mmol/L (22.0-26.0); PCO2 35.1 mmHg (35.0-45.0); PO2 87.3 mmHg (80.0-100.0); pH 7.397 (7.360-7.450); sO2 96.7 % (92.0-98.0)
[2019-11-04 06:20] LABS: ABSOLUTE NEUTROPHILS 15.3 thou/uL (1.4-8.2); BASOPHILS 0.3 % (0.0-2.0); EOSINOPHILS 0.4 % (0.0-3.0); HEMATOCRIT 29.7 % (42.0-52.0); HEMOGLOBIN 9.4 gm/dL (14.0-18.0); MCHC 31.5 g/dL (28.0-37.0); MCV 101.3 fL (80.0-100.0); MONOCYTES 7.8 % (1.0-8.0); PLATELET COUNT 185 thou/uL (150-400); POLYS 81.5 % (36.0-66.0); RBC 2.93 mil/uL (4.50-6.00); RDW 15.3 % (10.5-14.5); WBC 18.8 thou/uL (4.0-11.0)
[2019-11-04 06:54] LABS: ALBUMIN 1.8 g/dL (3.4-5.0); CALCIUM 8.4 mg/dL (8.5-10.1); CREATININE 0.7 mg/dL (0.7-1.3); MAGNESIUM 1.9 mg/dL (1.8-2.4); POTASSIUM 3.3 mmol/L (3.5-5.1); TOTAL BILIRUBIN 0.4 mg/dL (0.2-1.0); TOTAL PROTEIN 5.4 g/dL (6.4-8.2)
[2019-11-04 07:20] VITALS: BP 128/61
[2019-11-04 11:27] VITALS: BP 119/61
[2019-11-04 14:56] VITALS: BP 129/68
--- NOTE | 2019-11-04 18:22 | NUR ---
ASSUMED PATIENT CARE AT 0700. A/O X4. VSS. 2ND COVID NEGATIVE. OFF ISO. [facility]
[2019-11-04 21:14] VITALS: BP 143/101
[2019-11-04 23:30] VITALS: BP 136/72
--- NOTE | 2019-11-05 00:06 | NUR ---
TRANSFERRED TO , ROOM 201. VSS-AFEBRILE. NO C/O PAIN. REPORT CALLED TO SHREYAS COMBS, TRANSPORTED WITHOUT INCIDENT.
[2019-11-05 03:30] VITALS: BP 141/60
[2019-11-05 07:25] VITALS: BP 126/64
[2019-11-05 11:05] VITALS: BP 154/66
[2019-11-05 11:30] VITALS: BP 146/66
[2019-11-05 15:30] VITALS: BP 144/64
--- NOTE | 2019-11-05 17:26 | NUR ---
ASSUMED CARE PT SHIFT CHANGE. ASSESSMENTS CHARTED.MEDS GIVEN PER JUN. PT ALERT AND ORIENTED.VSS. C/O ABD PAIN, PHYSICIAN NOTIFIED. ORDERS NOT YET RECEIVED. PT PARTIAL QUAD, TURNS ENFORCED. PT NOTIFIES STAFF WHEN WANTS TO BE TURNED, DOES NOT LIKE Q2 REGIMEN. TURNS CHARTED. UOP ADEQUATE. O2 SATS WNL ON 2L O2. APPETITE ADEQUATE. DENIES SOB/CP. VSS. PT CURRENTLY EATING DINNER. CALLS WITH NEEDS. WILL CONTINUE TO MONITOR AND FOLLOW POC. WILL PASS ON REPORT TO MALIK RN.
[2019-11-05 19:40] VITALS: BP 156/67
[2019-11-06 04:45] VITALS: BP 148/63
--- NOTE | 2019-11-06 05:26 | NUR ---
PATIENT IS PROGRESSING SLOWLY IN HIS CARE PLAN. VITAL SIGNS STABLE WITH PATIENT HAVING NO COMPLAINTS OF NAUSEA. PATIENT DID COMPLAIN OF HEADACHE WHICH WAS TREATED EFFECTIVELY THROUGH MEDICATION AND NON PHARMACOLOGICAL INTERVENTIONS. FULLY ALERT AND ORIENTED, PATIENT IS ABLE TO CALL APPROPRIATELY FOR NEEDS AND PARTICIPATE IN CARE. BREATHING STABLE EVIDENCED BY ASSESSMENT AND SPOT OXYGENATION CHECKS. PATIENT FREQUENTLY REFUSES TURNS AND IS HIGHLY REGIMENTED IN HIS POSITIONING. CONTINUE PLAN OF CARE.
[2019-11-06 07:20] VITALS: BP 144/63
[2019-11-06 11:30] VITALS: BP 147/72
--- NOTE | 2019-11-06 11:41 | NUR ---
Patient admits from [facility] lt with resp failure and UTI. Patient uses electric wc at facility. patient HIV positive and hx of spinal stenosis and is paraplegic. Patient is transgender from male to female and prefers to be called "Justus." Patient covid negative test results 11/02. Sp with patient via phone plan return to facility once stable.
--- NOTE | 2019-11-06 13:42 | NUR ---
ORDERS RECEIVED FOR OT EVAL AND TREAT, CHART REVIEWED. SPOKE WITH PATIENT, FROM [facility] FOR 20 YEARS, HAS ASSIST EOB, USES SIT TO STAND LIFT TO ELECTRIC W/C. HAS LUE FUNCTIONAL USE, PROM PERFORMED TO ALL JOINTS. HAS EQUIPMENT IN ROOM SUCH DEVICE TO HELP USE BED CONTROLS AND COMPUTER. SEE Tito AGOSTO FOR FURTHER ROM/MMT TESTING. PATIENT REPORTS NOT NEEDS FOR ACUTE CARE AND WANTING TO RETURN TO FACILITY WHEN MEDICALLY STABLE. USES LUE FOR ORAL CARE AND FEEDING, THIS O.T. OBSERVED FEEDING, AND HAS ASSIST FOR OTHER ADLS AT BASELINE. Tito HAS COMMUNICATED WITH NURSING STAFF TO CONTINUE ROM PROGRAM AT NIGHT. ACUTE OT TO SIGN OFF.
[2019-11-06 16:10] VITALS: BP 147/82
[2019-11-06 16:20] VITALS: BP 165/79
--- NOTE | 2019-11-06 20:08 | NUR ---
PATIENT AWAKE MOST OF THE DAY. REFUSING REPOSTIONING AT TIMES. HEART RATE AND RHYTHM STABLE. ADEQUATE OXYGENATION ON 2L NC. DR BETANCOURT D/C'D IV ABX AND SWITCHED TO ORAL. IVF DISCONTINUED AND A DOSE OF LASIX GIVEN. LARGE AMOUNT OF URINE OUTPUT NOTED. REMAINS AFEBRILE. DISCUSSED PLAN OF CARE. PATIENT PROGRESSING TOWARDS GOALS.
[2019-11-06 20:15] VITALS: BP 187/83
[2019-11-07 00:29] VITALS: BP 146/65
--- NOTE | 2019-11-07 04:14 | NUR ---
ASSESSED AT START OF SHIFT. EVENING MEDS GIVEN AND PT VY IT WELL. PT REPOSITIONED FOR COMFORT. ROM EXERCISES DONE BEFORE BED. FOLLEY INTACT. ON 2L OF O2. HAD A BM SMEAR THIS SHIFT CREAM APPLIED ON SACRAL. TYLENOL GIVEN FOR PAIN. PT DRINKING PO FLUIDS. 1+ EDEMA NOTED ON RUE ELEVATED ON PILLOW. GOT LASIX FROM DAY SHIFT. FALL PREC IN PLACE AND CALL LIGHT IN REACH WILL CONT TO MONITOR.
[2019-11-07 04:45] VITALS: BP 151/70
[2019-11-07 05:44] LABS: HEMATOCRIT 30.6 % (42.0-52.0); MCH 32.8 pg (26.0-34.0); MCHC 32.8 g/dL (28.0-37.0); PLATELET COUNT 221 thou/uL (150-400); RBC 3.06 mil/uL (4.50-6.00); RDW 15.3 % (10.5-14.5)
[2019-11-07 05:58] LABS: CALCIUM 9.4 mg/dL (8.5-10.1); CREATININE 0.8 mg/dL (0.7-1.3); MAGNESIUM 1.6 mg/dL (1.8-2.4); POTASSIUM 3.3 mmol/L (3.5-5.1)
[2019-11-07 08:30] VITALS: BP 154/82
--- NOTE | 2019-11-07 09:48 | NUR ---
PT IS FROM [facility] FAXED CLINICAL UPDATE RECEIVED CONFIRMATION AND SPOKE WITH INTAKE. DP TO FOLLOW.
[2019-11-07] MEDS ORDERED: LEVAQUIN 750 M750 MG PO (10:44)
[2019-11-07 12:20] VITALS: BP 124/59
--- NOTE | 2019-11-07 13:00 | NUR ---
PT DISCHARGING TODAY BACK TO [facility] FAXED DC ORDERS/SUMMARY TO FACILITY SPOKE WITH NAT IN ADM SHE RECEIVED ORDERS. TRANSPORT ARRANGED WITH [facility] TRIP #[id number] STRETCHER VAN THEY WILL DIPPING MACHINE OPERATOR BETWEEN [phone]. NOTIFIED PT'S BROTHER OF DISCHARGE AND TIME OF TRANSPORT. UNIT NOTIFIED AND CHART COPY PER US. RN TO CALL REPORT TO [phone].
--- NOTE | 2019-11-07 14:14 | NUR ---
assessment as charted - meds as per jun - given tylenol for co's of headache this am with good relief. jose carlos diet and fluids. no co's of nausea. pt returned to facility this afternoon via stretcher. report called. no co's at time of d/c.
[2019-11-07 14:55] LABS: ABSOLUTE NEUTROPHILS 6.5 thou/uL (1.4-8.2); ANISOCYTOSIS 1+
== END 2019-11-07 13:51 | DRG 871 ==
LOC: ER 20:54 → EROBS 23:54 → 3W 11-03 14:07 → 2N 11-04 23:35
PROVIDERS: Emergency Medicine; Nurse Practitioner Family; ADMIT Internal Medicine; ATTEND Internal Medicine
DX: A41.9 Sepsis, unspecified organism (principal); J96.01 Acute respiratory failure with hypoxia; G82.50 Quadriplegia, unspecified; J18.9 Pneumonia, unspecified organism; N39.0 Urinary tract infection, site not specified; K21.9 Gastro-esophageal reflux disease without esophagitis; E78.5 Hyperlipidemia, unspecified; I50.9 Heart failure, unspecified; I11.0 Hypertensive heart disease with heart failure; B96.5 Pseudomonas (aeruginosa) (mallei) (pseudomallei) as the cause of diseases classified elsewhere; E66.01 Morbid (severe) obesity due to excess calories; Z68.33 Body mass index [BMI] 33.0-33.9, adult; Z03.818 Encounter for observation for suspected exposure to other biological agents ruled out; Z79.899 Other long term (current) drug therapy
CPT/HCPCS: 10081; 10879

== ENCOUNTER 2019-11-16 18:22 | Emergency (ER) | payer OTHER ==
[~2019-11-16] VITALS: Ht 182.9 cm; Wt 90.7 kg
[~2019-11-16 18:22] MED LIST changes: +LEVAQUIN 750 M750 MG PO; +LOPRESSOR50 MG PO; +TOPROL XL50 MG
[2019-11-16 20:18] LABS: ABSOLUTE NEUTROPHILS 6.4 thou/uL (1.4-8.2); BASOPHILS 0.4 % (0.0-2.0); EOSINOPHILS 0.5 % (0.0-3.0); HEMATOCRIT 36.5 % (42.0-52.0); HEMOGLOBIN 11.9 gm/dL (14.0-18.0); LYMPHOCYTES 22.3 % (24.0-44.0); MCH 31.9 pg (26.0-34.0); MCHC 32.6 g/dL (28.0-37.0); MCV 98.1 fL (80.0-100.0); MONOCYTES 7.4 % (1.0-8.0); PLATELET COUNT 303 thou/uL (150-400); POLYS 69.4 % (36.0-66.0); RBC 3.72 mil/uL (4.50-6.00); RDW 15.3 % (10.5-14.5); WBC 9.3 thou/uL (4.0-11.0)
[2019-11-16 20:25] LABS: ANION GAP 5 mmol/L (7-16); BUN 17 mg/dL (7-18); CHLORIDE 102 mmol/L (98-107); CO2 34 mmol/L (21-32); CREATININE 0.6 mg/dL (0.7-1.3); GLUCOSE 90 mg/dL (74-106); POTASSIUM 4.7 mmol/L (3.5-5.1); SODIUM 141 mmol/L (136-145)
[2019-11-16 20:34] LABS: TROPONIN-I <0.06 ng/mL (<0.06)
[2019-11-16] MEDS ORDERED: BACLOFEN 10MG T10 MG PO (20:39)
[2019-11-16] MEDS ORDERED: MUCINEX600 MG PO (20:40)
[2019-11-16 23:50] VITALS: BP 118/61
--- NOTE | 2019-11-17 08:13 | EKG ---
[facility] [place] [address] ELECTROCARDIOGRAM REPORT Name: DAMIÁN MERRILL Room #: DEP [facility].#: [id number] Admission: 11/16/19 Attend Phys: Discharge: 11/17/19 Date of : 67 Report #: [id number] THIS REPORT FOR: cc: Kevin Villalta MD, Ramilo MD Couchonnal,Hector Williamson MD ~ THIS REPORT FOR: //name// [facility] ED Test Date: 2019-11-16 Test Time: 19:37:46 Pat Name: DAMIÁN MERRILL Department: Room: Gender: Java Developer: michael espinosa rn : 1965 Requested By: Devin Escobar Order Number: [id number] MD: Hector Carl Measurements Intervals [place] Rate: 89 P: 28 MI: 156 QRS: 77 QRSD: 88 T: 37 QT: 363 QTc: 442 Interpretive Statements Sinus rhythm Probable left atrial enlargement Compared to ECG 10/24/2019 14:38:26 Myocardial infarct finding no longer present Electronically Signed On 11-17-2019 8:13:38 CDT by Hector Carl [email or web address] <ELECTRONICALLY SIGNED> By: Hector Carl MD 11/17/19812 36 36 Hector Carl MD /EPI
== END 2019-11-17 00:05 | disposition home or self-care (01) ==
LOC: ER 18:22
PROVIDERS: Emergency Medicine
DX: I11.0 Hypertensive heart disease with heart failure (principal); I50.9 Heart failure, unspecified; K21.9 Gastro-esophageal reflux disease without esophagitis; E78.5 Hyperlipidemia, unspecified; B20 Human immunodeficiency virus [HIV] disease; Z86.73 Personal history of transient ischemic attack (TIA), and cerebral infarction without residual deficits; Z79.899 Other long term (current) drug therapy

== ENCOUNTER 2019-11-25 13:31 | Inpatient (IN) | payer OTHER ==
[~2019-11-25] VITALS: Ht 175.3 cm; Wt 83.0 kg
[~2019-11-25 13:31] MED LIST changes: +BACLOFEN 10MG T10 MG PO; +MUCINEX600 MG PO
[2019-11-25 13:35] VITALS: BP 140/95
[2019-11-25 14:19] LABS: ABSOLUTE NEUTROPHILS 8.8 thou/uL (1.4-8.2); BASOPHILS 0.3 % (0.0-2.0); EOSINOPHILS 0.2 % (0.0-3.0); HEMATOCRIT 37.2 % (42.0-52.0); HEMOGLOBIN 11.8 gm/dL (14.0-18.0); LYMPHOCYTES 13.7 % (24.0-44.0); MCH 31.4 pg (26.0-34.0); MCHC 31.9 g/dL (28.0-37.0); MCV 98.4 fL (80.0-100.0); MONOCYTES 7.7 % (1.0-8.0); PLATELET COUNT 239 thou/uL (150-400); POLYS 78.1 % (36.0-66.0); RBC 3.77 mil/uL (4.50-6.00); RDW 16.1 % (10.5-14.5); WBC 11.2 thou/uL (4.0-11.0)
[2019-11-25 14:25] LABS: CALCIUM 9.7 mg/dL (8.5-10.1)
[2019-11-25 14:31] LABS: DIRECT BILIRUBIN 0.1 mg/dL (<0.1-0.2); TOTAL BILIRUBIN 0.3 mg/dL (0.2-1.0); TOTAL PROTEIN 7.3 g/dL (6.4-8.2)
[2019-11-25 14:54] LABS: HCO3 33.5 mmol/L (22.0-26.0); PCO2 51.1 mmHg (35.0-45.0); PO2 56.7 mmHg (80.0-100.0); pH 7.435 (7.360-7.450)
[2019-11-25 15:15] VITALS: BP 159/74
[2019-11-25 15:33] VITALS: BP 114/57
--- NOTE | 2019-11-25 16:43 | NUR ---
PATIENT ADMIT TO UNIT AT 1600. A/O X4. DROWSY. LOW TREVOR TEMP. QUADRPLEDIA. TOLERATED ON 4L/NC. WILL KEP MONITOR.
[2019-11-25 20:15] VITALS: BP 136/58
--- NOTE | 2019-11-25 20:16 | NUR ---
1900 assumed care of pt after report. 2016 baseline assessment completed , pt complaining about bed, about room and about being on this floor, is asking me to reposition him by myself, when I explained I would need help, he said I need to go get someone now. I explained I would as soon as someone is available, pt repositioned at 1900. fall precautions in place, pt is refusing scd's
[2019-11-26 00:02] VITALS: BP 149/68
[2019-11-26 05:01] VITALS: BP 127/53
[2019-11-26 05:25] LABS: HEMATOCRIT 30.3 % (42.0-52.0); HEMOGLOBIN 9.7 gm/dL (14.0-18.0); MCH 31.8 pg (26.0-34.0); MCHC 32.1 g/dL (28.0-37.0); RBC 3.06 mil/uL (4.50-6.00); RDW 15.7 % (10.5-14.5); WBC 10.6 thou/uL (4.0-11.0)
[2019-11-26 05:40] LABS: CALCIUM 8.5 mg/dL (8.5-10.1); CREATININE 0.9 mg/dL (0.7-1.3); POTASSIUM 3.9 mmol/L (3.5-5.1)
[2019-11-26 09:16] VITALS: BP 148/64
[2019-11-26 12:03] LABS: URINE BILIRUBIN NEGATIVE (Negative); URINE BLOOD NEGATIVE (Negative); URINE CLARITY CLOUDY; URINE COLOR YELLOW; URINE GLUCOSE-RANDOM* NEGATIVE (Negative); URINE KETONES NEGATIVE (Negative); URINE LEUKOCYTES-REFLEX NEGATIVE (Negative); URINE NITRITE-REFLEX NEGATIVE (Negative); URINE PROTEIN (DIPSTICK) 2+ (Negative); URINE UROBILINOGEN 0.2 E.U./dl (0.2-1.0)
[2019-11-26 12:18] VITALS: BP 148/65
[2019-11-26 14:18] LABS: BACTERIA-REFLEX None Seen /HPF (None Seen); SQUAMOUS 0-3 Few /LPF (0-3); TRIPLE PHOSPHATE CRYSTALS >10 Many /LPF (None Seen); URINE RBC None Seen /HPF (0-2); URINE WBC-REFLEX None Seen /HPF (0-5)
--- NOTE | 2019-11-26 18:33 | NUR ---
ASSUMED PATIENT CARE AT 0700. A/O X4. ON 2L/NC TOLEATED WELL. NO COUGH, NO SOB. ASSISTED PATIENT EACH MEALS. AFEBRILE. VSS. PROGRESSING TOWARDS POC GOALS.
[2019-11-26 19:53] VITALS: BP 178/71
[2019-11-27] VITALS (9 sets, daily range): BP systolic 151–193; BP diastolic 62–94
--- NOTE | 2019-11-27 07:31 | NUR ---
PT WAS TRANSFERRED FROM 3W VIA BED. AXOX4. VERY PARICULAR ABOUT CARE. ELEVATED PT ADDRESSED TO MARKETING STRATEGY ANALYST AND MANAGED WITH IV HYDRALAZINE. CRITICAL VANC TROUGH ADDRESSED TO AND NEW ABA RECEIVED. NO S/S ACUTE DISTRESS NOTED OR REPORTED AT THIS TIME. CARE TRANSFEERED TO AM RN AT THIS TIME.
--- NOTE | 2019-11-27 17:56 | NUR ---
Assumed patient care at 0715. Patient was given Hydralazine for Systolic Blood Pressure of 184 this am. Patient was asymptomatic. Blood pressure was high during noc shift as well, requiring the Hydralazine dose around midnight. Patienthad two BM's during not shift. She was given a full bed bath by both JANITOR's this am. LSCTA (diminished), ABD soft and non-tender, BS x's 4, skin is clean, warm, dry and intact. No other concerns during this shift. Will continue to monitor.
--- NOTE | 2019-11-28 04:47 | NUR ---
RECIEVED CARE OF THIS PATIENT AROUND 2029. PATIENT ALERT AND ORIENTED X4. IS AN INCOMPLETE QUAD WITH SOME MOVEMENT IN HIS L FOREARM. PATIENT LIKES THINGS A CERTAIN WAY AND WILL LET YOU KNOW WHAT HE WANTS. HAS IV IN LFA. EXT'S ARE PROPPED UP ON PILLOWS, HAS A CONDOM CATH PATENT WITH YELLOW URINE. WEARS O2 AT 2L/NC. DENIES PAIN. SLEPT LITTLE THIS SHIFT
[2019-11-28 08:45] VITALS: BP 152/60
--- NOTE | 2019-11-28 09:02 | NUR ---
PT ADMITTED RELATED TO SEPSIS, MULTI-FOCAL PNEUMONIA, COVID R/O. CM REVIEWED CHART AND SPOKE WITH CARE TEAM. CM CALLED AND SPOKE WITH PT YESTERDAY AFTERNNNON. PT IS A&O X4. CM ROLE INTORDUCED. PT IS FAMILIAR TO CM FROM PREVIOUS ADMISSIONS. PT RESIDES AT [facility]. PT INDICATED HE USES AN ELECTRIC WC, A HOSPITAL BED, A LIFT DEVICE AND OXYGEN AT THE FACILITY. PT INDICATED HE ANTICIPATES RETURNING TO HOME CARE CENTER ONCE MEDICALLY STABLE. CM CALLED AND SPOKE WITH PT'S NURSE AT [facility] YESTERDAY AND SHE INDICATED THAT THEY REQUIRE A COVID TEST 24-48 HRS PRIOR TO READMISSION. CM NOTIFIED DR. MONTOYA. PT'S BROTHER AND COUSIN ARE GOOD CONTACTS FOR HIM. PT HAD BEEN ON THREE IV ABX YESTERDAY. CM FOLLOWING REGARDING DC PLANNING. CLINICAL UPDATED TO BE SENT TO FACILITY.
--- NOTE | 2019-11-28 15:25 | NUR ---
ON-GOING ASSESSMENT: PT TRANSFERED TO 4S FROM 4W. PT IS FROM [facility]. PT IS CURRENTLY ON IV ANBX. CM AWAITING FINAL RECOMMENDATIONS/DURATION OF ANTIBIOTICS. CM SPOKE WITH [facility] WHO STATES THEY WILL HAVE TO CLARIFY IF THEY CAN DO IV ANBX BUT DO NOT BELIEVE SO. THEY ARE CHECKING WITH ADMINISTRATION AND WILL CALL CM BACK. PT WILL ALSO NEED ANOTHER COVID TEST (FACILITY REQUIRES TWO NEGATIVES PRIOR TO PATIENT RETURNING). CM NOTIFIED ATTENDING. CM WILL CONTINUE TO FOLLOW.
[2019-11-28 16:00] VITALS: BP 165/57
--- NOTE | 2019-11-28 18:30 | NUR ---
PT ASSESSED AT START OF SHIFT. CALM AND COOPERATIVE W/ CARES. PLEASANT DEMEANOR. SPEECH A LITTLE DIFFICULT TO UNDERSTAND AT TIMES. PT ONLY ABLE TO USE LT ARM. TURNED Q2HRS. HAD 3 BM'S THIS SHIFT. ONE LOOSE AND LARGE AND THEN SMALLER AMT. EATING AND DRINKING FINE. GOOD URINE OUTPUT IN EXT CATHETER. STATES NO PAINS OR DISCOMFORT. MESSAGE LEFT FOR DR. BETANCOURT RE RECOMMENDATION ON POSSIBLE RECONSULTING PULMONARY. LUNGS CLEAR. NO COUGHING. SECOND COVID SWAB SENT TO LAB AT 1300.
[2019-11-29 04:55] VITALS: BP 181/80
--- NOTE | 2019-11-29 05:43 | NUR ---
Assumed pt care at 1900. A/OX4,VSS. Denies pain on assessment. Pt's an incomplete quadraplegia and needs help with ADLS/turns as needed. Pt is able to feed self with left hand w/setup. Incontinent of bowels,condom catheter in place draining light yellow urine. Has a non productive cough,on O2 @ 2L/NC. UA obtained for Legionella PNA test. Resting quietly w/o any distress at this time,will continue to monitor pt.
[2019-11-29 07:00] VITALS: BP 164/84
[2019-11-29 11:20] LABS: HEMATOCRIT 31.7 % (42.0-52.0); HEMOGLOBIN 10.1 gm/dL (14.0-18.0); MCH 31.1 pg (26.0-34.0); MCV 97.4 fL (80.0-100.0); RBC 3.25 mil/uL (4.50-6.00); RDW 15.3 % (10.5-14.5); WBC 6.5 thou/uL (4.0-11.0)
[2019-11-29 11:34] LABS: CALCIUM 9.1 mg/dL (8.5-10.1); CREATININE 0.7 mg/dL (0.7-1.3); POTASSIUM 3.5 mmol/L (3.5-5.1)
--- NOTE | 2019-11-29 15:45 | NUR ---
ON-GOING ASSESSMENT: CM REVIEWED CHART. PLANS ARE FOR PT TO POSSIBLY CHANGE TO ORAL ANBX TOMORROW AND LIKELY BACK TO HIS FACILITY ([facility]). CM FAXED UPDATED CLINICAL TO HIS FACILITY AND NOTIFIED THEM. CM WILL CONTINUE TO FOLLOW.
[2019-11-29 16:00] VITALS: BP 189/93
--- NOTE | 2019-11-29 18:25 | NUR ---
PT IS AOX4, TURNED Q2H, VSS. PT CALLS APPRORIATELY, CALL LIGHT IN REACH. WILL CONTINUE TO MONITOR.
[2019-11-29 22:15] VITALS: BP 166/82
[2019-11-30 00:26] VITALS: BP 166/82
--- NOTE | 2019-11-30 03:42 | NUR ---
PT PREFERS TO BE REFERRED TO [facility]. PT AOX4. PT DENIES PAIN, NOTED TO HAVE SOB WITH EXERTION AND WHILE TALKING. PT REMAINS ON 2L O2 VIA NC. PT ASSESSED WITH BP OF 166/82, PRN IV HYRDRALYZINE Q6HR GIVEN. PT NOTED TO HAVE REDDNESS TO SCROTUM AND RECTUM, SMALL OPENING NOTED NO DRAINAGE. PT REPORTS AREA TENDER TO TACTILE STIMULATION. FREQUENT REPOSITIONING ENCOURAGED WITH PILLOWS FOR SUPPORT. LOW AIR LOSS MATTRESS IN PLACE, BARRIER CREAM APPLIED. PT REFUSING TURNS WHEN OBSERVED SLEEPING. PT TOLERATING PO INTAKE OF FLUIDS AND REGULAR DIET WITHOUT ISSUE. PT REQUIRING MEAL SET UP, WEAK HAND SPRINKLER FITTER NOTED. PT ENCOURAGED TO NOTIFY STAFF FOR ALL NEEDS. CALL LIGHT WITHIN REACH, BED ALARM ON,BED IN LOWEST POSITION, WILL CONTINUE TO MONITOR.
[2019-11-30 05:05] VITALS: BP 162/91
[2019-11-30 07:35] VITALS: BP 179/85
--- NOTE | 2019-11-30 09:00 | NUR ---
Nutrition: Pt assessed due to new selection of 'yes' to pressure wound. Admit: sepsis, multi-focal pneumonia, COVID r/o. Hx: HIV, partial quadriplegia. EMR notes redness to scrotum and rectum, with small opening only. Per nursing, pt noted to be tolerating fluids and regular diet without any issue. Does require meal set-up. Visited during breakfast. Pt denies any appetite issues or eating concerns. Inconsistent meal records, but eating 50-100% of most meals. Reviewed importance of protein and what sources provide protein, plus encouraged plenty of fruit/vegetable intake for rich nutrient content. Pt verbalized understanding. Eating protein foods well. Possible discharge back to facility as soon as today per EMR. Low nutrition risk. No new needs.
--- NOTE | 2019-11-30 11:46 | NUR ---
PATIENT RESTING IN BED ALERT XS 4, STATES NO PAIN OR RESP DISTRESS. PT FEEDS SELF WITH SET UP TURNED TO SIDE IF PATIENT REQUESTS. PT WANTS TO DC TO HOME TODAY. RAY CATH TO D/D WITH CLEAR YELLOW URINE IN RAY CATH. HAS O2 AT 2L/NC. PT IS PLEASANT AND COOPERATIVE WITH CARE.
[2019-11-30] MEDS ORDERED: AZITHROMYCIN 2250 MG PO (14:01)
[2019-11-30] MEDS ORDERED: CEFUROXIME500 MG PO (14:01)
[2019-11-30] MEDS ORDERED: PEPCID20 MG PO (14:01)
[2019-11-30 16:00] VITALS: BP 181/89
--- NOTE | 2019-11-30 16:16 | NUR ---
on-going assessment: cm REVIEWED CHART AND SPOKE WITH PATIENT. PT HAS ORDERS TO DISCHARGE TODAY BACK TO HIS FACILITY [facility]. RUBÉN SPOKE WITH BEDSIDE RN WHO REPORTS THAT PULOMONARY CAME BY AND PATIENT IS TO BE TESTED WITH A PERCUSSION VEST TO SEE IF HE TOLERATES PRIOR TO DISCHARGE. CM REACHED OUT TO ATTENDING WHO STATES PATIENT CAN DISCHARGE AND THEN FOLLOW UP WITH PULMONARY IN ONE WEEK IN THE OFFICE AND THEN A VEST CAN BE ORDERED FROM THERE IF NEEDED. DR MONTOYA STATED HE WOULD REACH OUT TO DR. MURRAY. RUBÉN ALSO NOTIFIED DR. MURRAY WHO STATES HE CAN ORDER FROM HIS OFFICE IF NEEDED. RUBÉN NOTIFIED OLIVE PATIENTS RN BACK AT HIS FACILITY. SHE REPORTS THEY WOULD HAVE TO RUN BY THEIR SUPERVISOR FINISHING TO EVEN SEE IF THEY CAN DO A VEST DUE TO THE COST. RUBÉN PROVIDED OLIVE THE NURSE AT [facility] WITH THE CONTACT INFORMATION AND ADDRESS FOR DR MURRAY INSTRUCTING THAT PATIENT IS TO FOLLOW UP THERE IN ONE WEEK. SHE STATES THEY WILL CALL AND MAKE AN APPT. CM FAXED DISCHARGE PAPERWORK TO THE FACILITY AND ORDERED A CHART COPY. RUBÉN PROVIDED BEDSIDE RN WITH THE NUMBER FOR REPORT. RUBÉN ALSO NOTIFIED PATIENT WHO IS AGREEABLE WITH DISCHARGE.
--- NOTE | 2019-11-30 17:23 | NUR ---
ARRANGED TRANSPORT WITH [facility] BY SUNNY WALTER AND 3L 02 THEY WILL PICK PT UP BETWEEN [phone]. NOTIFIED UNIT OF TIME TRIP#[id number].
[2019-11-30 18:40] VITALS: BP 181/89
--- NOTE | 2019-11-30 19:58 | NUR ---
[facility] HERE TO TRANSPORT PATIENT TO [facility].
== END 2019-11-30 20:06 | DRG 871 ==
LOC: ER 13:31 → EROBS 14:55 → 3W 14:55 → 4W 11-26 21:39 → 4S 11-27 22:03
PROVIDERS: Emergency Medicine; Internal Medicine Pulmonary Disease; ADMIT Internal Medicine; ATTEND Internal Medicine
DX: A41.9 Sepsis, unspecified organism (principal); J18.9 Pneumonia, unspecified organism; J96.21 Acute and chronic respiratory failure with hypoxia; J96.22 Acute and chronic respiratory failure with hypercapnia; G92 Toxic encephalopathy; G82.50 Quadriplegia, unspecified; K21.9 Gastro-esophageal reflux disease without esophagitis; I50.9 Heart failure, unspecified; R25.2 Cramp and spasm; E78.5 Hyperlipidemia, unspecified; M48.02 Spinal stenosis, cervical region; I11.0 Hypertensive heart disease with heart failure; I27.20 Pulmonary hypertension, unspecified; Z20.828 Contact with and (suspected) exposure to other viral communicable diseases; Z86.73 Personal history of transient ischemic attack (TIA), and cerebral infarction without residual deficits; Z79.899 Other long term (current) drug therapy
CPT/HCPCS: 10047; 10100; 10195; 10879

== ENCOUNTER 2019-12-12 14:52 | Emergency (ER) | payer OTHER ==
[~2019-12-12] VITALS: Ht 175.3 cm; Wt 88.5 kg
[~2019-12-12 14:52] MED LIST changes: +PEPCID20 MG PO
[2019-12-12 16:03] LABS: HCO3 33.8 mmol/L (22.0-26.0); PCO2 52.9 mmHg (35.0-45.0); PO2 77.5 mmHg (80.0-100.0); pH 7.423 (7.360-7.450); sO2 95.5 % (92.0-98.0)
[2019-12-12 16:21] LABS: ABSOLUTE NEUTROPHILS 3.5 thou/uL (1.4-8.2); BASOPHILS 0.8 % (0.0-2.0); EOSINOPHILS 0.7 % (0.0-3.0); HEMATOCRIT 34.4 % (42.0-52.0); HEMOGLOBIN 10.9 gm/dL (14.0-18.0); LYMPHOCYTES 37.9 % (24.0-44.0); MCH 30.8 pg (26.0-34.0); MCHC 31.7 g/dL (28.0-37.0); MCV 97.2 fL (80.0-100.0); MONOCYTES 9.8 % (1.0-8.0); PLATELET COUNT 256 thou/uL (150-400); POLYS 50.8 % (36.0-66.0); RBC 3.54 mil/uL (4.50-6.00); RDW 16.3 % (10.5-14.5)
[2019-12-12 16:30] LABS: ANION GAP 7 mmol/L (7-16); BUN 15 mg/dL (7-18); CALCIUM 9.5 mg/dL (8.5-10.1); CHLORIDE 104 mmol/L (98-107); CO2 32 mmol/L (21-32); CREATININE 0.5 mg/dL (0.7-1.3); GLUCOSE 97 mg/dL (74-106); POTASSIUM 4.3 mmol/L (3.5-5.1); SODIUM 143 mmol/L (136-145)
[2019-12-12 16:36] LABS: ALBUMIN 2.6 g/dL (3.4-5.0); DIRECT BILIRUBIN < 0.1 mg/dL (<0.1-0.2); SGOT 35 U/L (15-37); SGPT 33 U/L (30-65); TOTAL BILIRUBIN 0.2 mg/dL (0.2-1.0); TOTAL PROTEIN 6.7 g/dL (6.4-8.2)
[2019-12-12 18:42] LABS: URINE BILIRUBIN NEGATIVE (Negative); URINE BLOOD NEGATIVE (Negative); URINE CLARITY CLEAR; URINE COLOR YELLOW; URINE GLUCOSE-RANDOM* NEGATIVE (Negative); URINE KETONES NEGATIVE (Negative); URINE LEUKOCYTES-REFLEX NEGATIVE (Negative); URINE NITRITE-REFLEX NEGATIVE (Negative); URINE PROTEIN (DIPSTICK) 2+ (Negative); URINE UROBILINOGEN 0.2 E.U./dl (0.2-1.0)
[2019-12-12 18:50] LABS: BACTERIA-REFLEX >30 Many /HPF (None Seen); YEAST-REFLEX Present (None Seen)
[2019-12-12 18:51] LABS: CASTS None Seen /LPF (None Seen); CRYSTALS None Seen /LPF (None Seen); SQUAMOUS 0-3 Few /LPF (0-3); URINE RBC None Seen /HPF (0-2); URINE WBC-REFLEX None Seen /HPF (0-5)
[2019-12-12] MEDS ORDERED: ZITHROMAX250 MG PO (20:23)
[2019-12-12 20:32] VITALS: BP 167/69
== END 2019-12-12 23:20 | disposition home or self-care (01) ==
LOC: ER 14:52
PROVIDERS: Emergency Medicine
DX: R50.9 Fever, unspecified (principal); R53.83 Other fatigue; M54.5 Low back pain; K21.9 Gastro-esophageal reflux disease without esophagitis; B20 Human immunodeficiency virus [HIV] disease; Z86.73 Personal history of transient ischemic attack (TIA), and cerebral infarction without residual deficits; E78.5 Hyperlipidemia, unspecified; I11.0 Hypertensive heart disease with heart failure; I50.9 Heart failure, unspecified; Z79.2 Long term (current) use of antibiotics; Z79.899 Other long term (current) drug therapy